=== PATIENT | male | born 1950 | race Caucasian/White ===

== ENCOUNTER 2019-08-01 08:08 | Outpatient (RCR) | payer MEDICARE, SELFPAY ==
[2019-05-22 09:22] LABS: INR 2.7; Prothrombin Time 28.3 Seconds (9.64-11.0)
[2019-06-27 08:06] LABS: INR 2.2; Prothrombin Time 23.4 Seconds (9.64-11.0)
[2019-08-01 08:25] LABS: INR 3.9; Prothrombin Time 40.6 Seconds (9.64-11.0)
== END 2019-08-20 23:59 | disposition home or self-care (01) ==
LOC: CHSLAB 08:08
PROVIDERS: PCP Internal Medicine; Visit Provider Internal Medicine
DX: Z79.01 Long term (current) use of anticoagulants (principal)
CPT/HCPCS: 36415; 85610

== ENCOUNTER 2019-09-10 07:21 | Outpatient (CLI) | payer MEDICARE, SELFPAY ==
[2019-09-10 07:40] LABS: Basophils Absolute Auto 0.05 K/mm3 (0.00-0.10); Basophils Percent Auto 0.7 % (0.0-1.0); Eosinophils Percent Auto 1.3 % (1.0-6.0); Hematocrit 43.6 % (37.0-46.0); Hemoglobin 14.9 g/dL (12.4-15.3); Immature Granulocyte Absolute 0.04 K/mm3 (0.00-0.00); Immature Granulocyte Percent A 0.5 % (0.0-0.0); Lymphocytes Absolute Auto 1.47 K/mm3 (1.10-4.50); Lymphocytes Percent Auto 19.6 % (18.0-42.0); Mean Corpuscular HGB Conc 34.2 g/dL (32.0-36.0); Mean Corpuscular Hemoglobin 29.6 pg (27.0-31.0); Mean Corpuscular Volume 86.7 fL (78.0-102.0); Mean Platelet Volume 9.2 fl (8.7-11.0); Monocytes Absolute Auto 0.69 K/mm3 (0.10-0.90); Monocytes Percent Auto 9.2 % (2.0-11.0); Neutrophils Absolute Auto 5.2 K/mm3 (1.7-7.2); Neutrophils Percent Auto 68.7 % (50.0-70.0); Platelet Count Result 207 K/mm3 (150-420); Red Blood Count 5.03 M/mm3 (4.70-6.10); Red Cell Distribution Width 13.2 % (11.6-14.4); White Blood Count 7.5 K/mm3 (4.8-10.8)
[2019-09-10 09:06] LABS: Alanine Aminotransferase 22 U/L (16-63); Albumin Level 4.2 g/dL (3.4-5.0); Alkaline Phosphatase 57 U/L (46-116); Anion Gap 15.3 mmol/L (7-16); Aspartate Amino Transferase 22 U/L (15-37); Bilirubin,Total 0.6 mg/dL (0.00-1.00); Blood Urea Nitrogen 18 mg/dL (7-18); Calcium 8.4 mg/dL (8.5-10.1); Carbon Dioxide 24 mmol/L (21-32); Chloride 106 mmol/L (98-108); Estimated Glomerular Filt Rate 59; Glucose 105 mg/dL (70-99); Osmolality Calculated 293 mOsm/kg (285-295); Potassium 4.3 mmol/L (3.5-5.1); Sodium 141 mmol/L (136-145); Total Protein 7.2 g/dL (6.4-8.2)
[2019-09-10 09:19] LABS: Thyroid Stimulating Hormone Reflex 0.22 u/IU/mL (0.36-3.74)
[2019-09-10 09:32] LABS: Free T4 Free Thyroxine Reflex 1.28 ng/dL (0.76-1.46)
[2019-09-12 19:50] LABS: T4 Thyroxine 10.8 mcg/dL (4.9-10.5)
== END 2019-09-10 07:22 | disposition home or self-care (01) ==
PROVIDERS: PCP Internal Medicine
DX: E03.9 Hypothyroidism, unspecified (principal); E78.00 Pure hypercholesterolemia, unspecified; I44.2 Atrioventricular block, complete; Z79.01 Long term (current) use of anticoagulants; Z95.0 Presence of cardiac pacemaker; Z95.2 Presence of prosthetic heart valve; Z95.828 Presence of other vascular implants and grafts
CPT/HCPCS: 36415; 80053; 84436; 84439; 84443; 85025

== ENCOUNTER 2019-11-20 07:00 | Outpatient (RCR) | payer MEDICARE, SELFPAY ==
[2019-09-04 07:52] LABS: Prothrombin Time 29.4 Seconds (9.64-11.0)
[2019-10-16 07:47] LABS: INR 3.4; Prothrombin Time 33.8 Seconds (9.64-11.0)
[2019-11-20 07:39] LABS: Prothrombin Time 30.1 Seconds (9.64-11.0)
== END 2019-12-03 23:59 | disposition home or self-care (01) ==
LOC: CHSLAB 07:00
PROVIDERS: PCP Internal Medicine; Visit Provider Internal Medicine
DX: Z79.01 Long term (current) use of anticoagulants (principal)
CPT/HCPCS: 36415; 85610

== ENCOUNTER 2020-01-02 10:13 | Outpatient (CLI) | payer MEDICARE, SELFPAY ==
--- NOTE | ~2020-01-02 | US_ITS ---
EXAMINATION: US retroperitoneal comp DATE: 01/02/2020 11:13 INDICATION: Hematuria. TECHNIQUE: Multiple ultrasound grayscale images of the kidneys were obtained. COMPARISON: Ultrasound 04/01/2014 FINDINGS: The right kidney measures 10.2 x 5.1 x 4.7 cm. The left kidney measures 11.4 x 5.6 x 5.3 cm. The kidn eys demonstrate normal parenchymal echogenicity. There is no hydronephrosis. The bladder is normal. T he prevoid volume is 646 mL. The postvoid volume is 35 mL. The prostate is mildly enlarged. There is a 3.9 cm heterogeneous mass in the liver. IMPRESSION: 1. Normal kidneys. No hydronephrosis. 2. 3.9 cm liver mass suspicious for malignancy. Abdomen MRI without and with contrast is recommended. Reviewed, dictated and finalized at location A. IMPRESSION: 1. Normal kidneys. No hydronephrosis. 2. 3.9 cm liver mass suspicious for malignancy. Abdomen MRI without and with co ntrast is recommended.
== END 2020-01-02 10:14 | disposition home or self-care (01) ==
LOC: CHSIMG 10:14
PROVIDERS: PCP Internal Medicine; Visit Provider Internal Medicine
DX: R31.9 Hematuria, unspecified (principal)
CPT/HCPCS: 76770

== ENCOUNTER 2020-01-13 06:59 | Outpatient (CLI) | payer MEDICARE, SELFPAY ==
--- NOTE | ~2020-01-13 | CT_ITS ---
EXAMINATION: CT abdomen wo/w con INDICATION: Liver mass TECHNIQUE: Computed tomographic images of the abdomen were obtained prior to then after the administr ation of 100 cc of Omnipaque 350 intravenous contrast in the arterial and portal venous phases. The d ose-length product (DLP) was 1010.26 mGy-cm. Automated exposure control and iterative reconstruction technique were employed. COMPARISON: Ultrasound dated 01/02/2020 and 04/01/2014 FINDINGS: There are multiple cysts of the liver which measure up to 4.9 cm in liver segment II. There is a 6.5 x 4.5 cm mass at the junction of liver segments VII and VIII which is nonenhancing. There i s a tiny peripheral calcification in the mass. On the 2013 comparison ultrasound, the mass measured 5 .9 cm but was cystic in appearance with thin septations. The portal and hepatic veins are patent. The gallbladder is surgically absent. The spleen and adrenal glands are normal. There are two cystic les ions in the body of the pancreas which measure 5 mm. There is no definite communication with the main pancreatic duct. Cysts of the kidneys measure up to 10 mm on the left. There are no pathologically e nlarged abdominal lymph nodes. No dilated loops of bowel are evident. There is moderate lumbar spondy losis. IMPRESSION: 1. Multiple liver cysts including one hyperdense but nonenhancing cyst. Finding could reflect old hem orrhage or proteinaceous material or possibly very slow filling hemangioma.. 2. Cystic pancreatic lesions measuring up to 5 mm without definite main pancreatic duct communication . The differential diagnosis includes pseudocyst, intraductal papillary mucinous neoplasm (IPMN), muc inous cystic neoplasm (MCN), and the less common serous cystadenoma and neuroendocrine tumor. Correla te for history of pancreatitis. Follow-up CT or MRI without and with contrast in two years is recommended. Reviewed, dictated and finalized at location A. IMPRESSION: 1. Multiple liver cysts including one hyperdense but nonenhancing cyst. Finding could reflect old hemorrhage or proteinaceous material or possibly very slow f illing hemangioma.. 2. Cystic pancreatic lesions measuring up to 5 mm without definite main pancrea tic duct communication. The differential diagnosis includes pseudocyst, intradu ctal papillary mucinous neoplasm (IPMN), mucinous cystic neoplasm (MCN), and th e less common serous cystadenoma and neuroendocrine tumor. Correlate for histor y of pancreatitis. Follow-up CT or MRI without and with contrast in two years is recommended.
[2020-01-13 07:22] LABS: Estimated Glomerular Filt Rate 58
== END 2020-01-13 07:00 | disposition home or self-care (01) ==
LOC: CHSIMG 07:01
PROVIDERS: PCP Internal Medicine; Visit Provider Internal Medicine
DX: R16.0 Hepatomegaly, not elsewhere classified (principal)
CPT/HCPCS: 74170; Q9965

== ENCOUNTER 2020-02-05 07:17 | Outpatient (CLI) | payer MEDICARE, SELFPAY ==
[2020-02-05 07:44] LABS: INR 3.6; Prothrombin Time 35.9 Seconds (9.64-11.0)
[2020-02-05 08:31] LABS: Free T4 Free Thyroxine 1.38 ng/dL (0.76-1.46); Thyroid Stimulating Hormone 0.16 uIU/mL (0.36-3.74)
[2020-02-13 03:41] LABS: Thyroglobulin <0.1 ng/mL (2.8-40.9); Thyroglobulin Antibodies <1 IU/mL (<=1)
== END 2020-02-05 07:18 | disposition home or self-care (01) ==
LOC: CHSLAB 07:22
PROVIDERS: PCP Internal Medicine
DX: Z79.01 Long term (current) use of anticoagulants (principal); C73 Malignant neoplasm of thyroid gland
CPT/HCPCS: 36415; 84432; 84439; 84443; 85610; 86800

== ENCOUNTER 2020-03-08 07:54 | Outpatient (RCR) | payer MEDICARE, SELFPAY ==
[2019-12-31 07:48] LABS: INR 3.9; Prothrombin Time 38.3 Seconds (9.64-11.0)
[2020-03-08 08:19] LABS: INR 2.9; Prothrombin Time 28.8 Seconds (9.64-11.0)
== END 2020-03-30 23:59 | disposition home or self-care (01) ==
LOC: CHSLAB 07:54
PROVIDERS: PCP Internal Medicine; Visit Provider Internal Medicine
DX: Z79.01 Long term (current) use of anticoagulants (principal)
CPT/HCPCS: 36415; 85610

== ENCOUNTER 2020-06-17 11:31 | Outpatient (RCR) | payer MEDICARE, SELFPAY ==
--- NOTE | 2020-06-17 12:54 | PTOPEVAL ---
Thank you for referring Yonny Lawler to [facility].? The patient is scheduled to be seen for therapy? ____x/week for ___ weeks. Please review, sign, date and return this plan of care DEL. I agree with and certify that the following plan of care is medically necessary. Referring Physician Date Admitting Provider: Attending Provider: Alex Gifford MD Referring Provider: *PT Outpatient Evaluation Start: 06/17/20 11:21 Freq: Status: Active Protocol: Document 06/17/20 11:20 [facility] (Rec: 06/17/20 11:49 [facility] [id number]) Therapy Assessment Status Assessment Status Assessment Status Evaluation Evaluation Information Problem Diagnosis BPPV Onset 06/17/20 Subjective Information patient reports he has been Query Text:As Reported By Patient/ having symptoms for about 3 Family months or so. he reports he will get dizzy when lying down in bed, or when laying down to the floor to work on projects/cars at home. he reports he does have a heart valve replacement (25 years ago). he reports he is on coumadin. he has a history of mild strokes several years ago . Prior Level of Function Comments Additional Prior Level of Function prior to 3 months ago, no Comments issues with dizzyness. patient reports no injury. he reports his brother had similar symptoms about 2-3 years ago. Pain Assessment Timing of Pain Assessment Timing of Pain Assessment Assessment Self Report Self Report Pain Level 0 Pain Score Pain Score 0: Self Report Cervical and Lumbar ROM Cervical ROM Cervical Flexion (0-60) 50 Query Text:Active in Degrees Cervical Extension (0-70) 30 Query Text:Active in Degrees Upper Extremity Range of Motion General Upper Extremity Range of Motion Reason Not Measured WFL/Left,WFL/Right Upper Extremity Muscle Strength Testing General Upper Extremity Strength Gross Upper Extremity Strength Comments bilateral shoulder flex = 5/5 bilateral shoulder abd = 5/5 bilateral elbow flex and ext = 5/5 Palpation Assessment Palpation Palpation BP sitting at rest = 130/75 -positive vertical nystagmus with suraj hallpike test to the R side. General Exercise General Exercises Exerc
== END 2020-06-28 14:08 | disposition home or self-care (01) ==
LOC: CHSPT 11:31
PROVIDERS: PCP Internal Medicine; Visit Provider Internal Medicine
DX: H81.10 Benign paroxysmal vertigo, unspecified ear (principal)
CPT/HCPCS: 97112; 97161; 97530

== ENCOUNTER 2020-07-07 10:07 | Outpatient (RCR) | payer MEDICARE, SELFPAY ==
[2020-04-22 08:50] LABS: Prothrombin Time 29.5 Seconds (9.64-11.0)
[2020-06-01 11:08] LABS: INR 2.2; Prothrombin Time 21.7 Seconds (9.64-11.0)
[2020-07-07 10:36] LABS: INR 3.1; Prothrombin Time 31.9 Seconds (9.50-12.10)
== END 2020-07-21 23:59 | disposition home or self-care (01) ==
LOC: CHSLAB 10:07
PROVIDERS: PCP Internal Medicine; Visit Provider Internal Medicine
DX: Z79.01 Long term (current) use of anticoagulants (principal)
CPT/HCPCS: 36415; 85610

== ENCOUNTER 2020-10-21 08:43 | Outpatient (RCR) | payer MEDICARE, SELFPAY ==
[2020-08-11 07:51] LABS: INR 3.5; Prothrombin Time 35.2 Seconds (9.50-12.10)
[2020-09-16 08:17] LABS: INR 2.3; Prothrombin Time 23.9 Seconds (9.50-12.10)
[2020-10-21 09:22] LABS: INR 3.7; Prothrombin Time 36.9 Seconds (9.50-12.10)
== END 2020-11-09 23:59 | disposition home or self-care (01) ==
LOC: CHSLAB 08:43
PROVIDERS: PCP Internal Medicine; Visit Provider Internal Medicine
DX: Z79.01 Long term (current) use of anticoagulants (principal)
CPT/HCPCS: 36415; 85610

== ENCOUNTER 2020-11-29 07:05 | Outpatient (RCR) | payer MEDICARE, SELFPAY ==
[2020-11-29 07:29] LABS: INR 2.2
== END 2021-02-27 23:59 | disposition home or self-care (01) ==
LOC: CHSLAB 07:05
PROVIDERS: PCP Internal Medicine; Visit Provider Internal Medicine
DX: Z79.01 Long term (current) use of anticoagulants (principal)
CPT/HCPCS: 36415; 85610

== ENCOUNTER 2021-01-13 07:26 | Outpatient (CLI) | payer MEDICARE, SELFPAY ==
[2021-01-13 07:47] LABS: Basophils Absolute Auto 0.04 K/mm3 (0.00-0.10); Basophils Percent Auto 0.5 % (0.0-1.0); Eosinophils Absolute Auto 0.14 K/mm3 (0.02-0.50); Eosinophils Percent Auto 1.7 % (1.0-6.0); Hematocrit 43.4 % (37.0-46.0); Immature Granulocyte Absolute 0.06 K/mm3 (0.00-0.00); Immature Granulocyte Percent A 0.7 % (0.0-0.0); Lymphocytes Absolute Auto 1.64 K/mm3 (1.10-4.50); Mean Corpuscular HGB Conc 34.6 g/dL (32.0-36.0); Mean Corpuscular Hemoglobin 29.5 pg (27.0-31.0); Mean Corpuscular Volume 85.4 fL (78.0-102.0); Monocytes Absolute Auto 0.77 K/mm3 (0.10-0.90); Monocytes Percent Auto 9.4 % (2.0-11.0); Neutrophils Absolute Auto 5.5 K/mm3 (1.7-7.2); Neutrophils Percent Auto 67.7 % (50.0-70.0); Platelet Count Result 194 K/mm3 (150-420); Red Blood Count 5.08 M/mm3 (4.70-6.10); White Blood Count 8.2 K/mm3 (4.8-10.8)
[2021-01-13 08:00] LABS: INR 3.9; Prothrombin Time 39.2 Seconds (9.50-12.10)
[2021-01-13 08:48] LABS: Alanine Aminotransferase 20 U/L (16-63); Alkaline Phosphatase 58 U/L (46-116); Anion Gap 10 mmol/L (8-16); Aspartate Amino Transferase 20 U/L (15-37); Bilirubin,Total 0.6 mg/dL (0.00-1.00); Blood Urea Nitrogen 15 mg/dL (7-18); Calcium 8.1 mg/dL (8.5-10.1); Carbon Dioxide 25 mmol/L (21-32); Chloride 107 mmol/L (98-108); Cholesterol 148 mg/dL (0-200); Estimated Glomerular Filt Rate > 60; Free T4 Free Thyroxine 1.44 ng/dL (0.76-1.46); Glucose 98 mg/dL (70-99); HDL Direct 35 mg/dL (40-60); Osmolality Calculated 294 mOsm/kg (285-295); Potassium 4.6 mmol/L (3.5-5.1); Sodium 142 mmol/L (136-145); Thyroid Stimulating Hormone 0.07 uIU/mL (0.36-3.74); Total Protein 6.8 g/dL (6.4-8.2)
[2021-01-13 10:29] LABS: LDL Cholesterol Calculated 95 mg/dL (<130); Triglycerides 89 mg/dL (0-150)
[2021-01-16 04:03] LABS: Thyroglobulin <0.1 ng/mL (2.8-40.9); Thyroglobulin Antibodies <1 IU/mL (<=1)
== END 2021-01-13 07:27 | disposition home or self-care (01) ==
PROVIDERS: PCP Internal Medicine
DX: Z79.01 Long term (current) use of anticoagulants (principal); E78.00 Pure hypercholesterolemia, unspecified; I44.2 Atrioventricular block, complete; Z95.0 Presence of cardiac pacemaker; Z95.2 Presence of prosthetic heart valve; Z95.828 Presence of other vascular implants and grafts
CPT/HCPCS: 36415; 80053; 80061; 84432; 84439; 84443; 85025; 85610; 86800

== ENCOUNTER 2021-02-16 10:13 | Outpatient (CLI) | payer MEDICARE, SELFPAY ==
--- NOTE | ~2021-02-16 | DEXA_ITS ---
Bone Density Report Name: Yonny Lawler Age: 70 Sex: Male Ethnicity: White Date of : 1950 Indication: screening for osteoporosis; Referring Provider: Alex Gifford Study: Bone densitometry was performed. Exam Date: February 16, 2021 Accession number: [id number] Bone Density: Region BMD T-score Z-score Classification AP Spine(L2, L3, L4) 1.111 0.0 0.9 Normal Femoral Neck (Left) 0.773 -1.2 0.0 Osteopenia Total Hip (Left) 0.937 -0.6 0.0 Normal Femoral Neck (Right) 0.852 -0.6 0.6 Normal Total Hip (Right) 0.967 -0.4 0.2 Normal Femoral Neck Mean 0.812 -0.9 0.3 Normal Total Hip Mean 0.952 -0.5 0.1 Normal World Health Organization criteria for BMD impression classify patients as: Normal (T-score at or above -1.0), Osteopenia (T-score between -1.0 and -2.5), or Osteoporosis (T-score at or below -2.5). 10-year Fracture Risk: FRAX not reported because: Treated for osteoporosis Clinical Information Provided by Patient: Is being treated for osteoporosis Has used the following medications: Vitamin D, Calcium Patient maximum height was 69 Drinks caffeinated beverages Impression: The patient has low bone mass, based on the Left Femoral Neck T-score. Discussion: It is important to ask patients whether they are taking their medications and to encourage continued and appropriate compliance with their osteoporosis therapies to reduce fracture risk. It is also important to review their risk factors and encourage appropriate calcium and vitamin D intakes, exercise, fall prevention and other lifestyle measures. Follow-Up: Consider repeating this study in 2 years to reassess this patient's status, or sooner if there is some new clinical indication. Reported by: Dr. Néstor Hunter on 02/16/2021 10:39:00 AM. Reviewed, dictated and finalized at location A. [facility]
[2021-02-16 10:39] LABS: INR 3.7; Prothrombin Time 36.8 Seconds (9.50-12.10)
== END 2021-02-16 10:14 | disposition home or self-care (01) ==
PROVIDERS: PCP Internal Medicine; Visit Provider Internal Medicine
DX: Z12.5 Encounter for screening for malignant neoplasm of prostate (principal); M81.0 Age-related osteoporosis without current pathological fracture; Z79.01 Long term (current) use of anticoagulants
CPT/HCPCS: 36415; 77080; 84153; 85610; G0103

== ENCOUNTER 2021-05-21 12:36 | Outpatient (RCR) | payer MEDICARE, SELFPAY ==
[2021-03-24 09:16] LABS: INR 4.1
[2021-04-22 08:34] LABS: INR 2.4; Prothrombin Time 24.4 Seconds (9.50-12.10)
[2021-05-21 12:57] LABS: INR 3.8; Prothrombin Time 38.4 Seconds (9.50-12.10)
== END 2021-06-22 23:59 | disposition home or self-care (01) ==
LOC: CHSLAB 12:36
PROVIDERS: PCP Internal Medicine; Visit Provider Internal Medicine
DX: Z79.01 Long term (current) use of anticoagulants (principal)
CPT/HCPCS: 36415; 85610

== ENCOUNTER 2021-08-29 08:46 | Outpatient (RCR) | payer MEDICARE, SELFPAY ==
[2021-06-24 10:33] LABS: INR 3.7; Prothrombin Time 36.7 Seconds (9.50-12.10)
[2021-07-29 08:39] LABS: INR 3.1; Prothrombin Time 31.4 Seconds (9.50-12.10)
[2021-08-29 09:31] LABS: INR 2.8; Prothrombin Time 28.2 Seconds (9.50-12.10)
== END 2021-09-22 23:59 | disposition home or self-care (01) ==
LOC: CHSLAB 08:46
PROVIDERS: PCP Internal Medicine; Visit Provider Internal Medicine
DX: Z79.01 Long term (current) use of anticoagulants (principal)
CPT/HCPCS: 36415; 85610

== ENCOUNTER 2021-10-10 07:53 | Outpatient (RCR) | payer MEDICARE, SELFPAY ==
--- NOTE | 2021-10-10 09:06 | PTOPEVAL ---
Thank you for referring Yonny Lawler to [facility] [place] 2[facility]? The patient is scheduled to be seen for therapy? ____x/week for ___ weeks. Please review, sign, date and return this plan of care DEL. I agree with and certify that the following plan of care is medically necessary. Referring Physician Date Admitting Provider: Attending Provider: Alex Gifford MD Referring Provider: *PT Outpatient Evaluation Start: 10/10/21 08:10 Freq: Status: Active Protocol: Document 10/10/21 08:10 [facility] (Rec: 10/10/21 09:05 [facility] [id number]) Therapy Assessment Status Assessment Status Assessment Status Evaluation Evaluation Information Problem Diagnosis L shoulder pain Onset 10/04/21 Additional Evaluation Detail quick dash = 34% functionally declined Subjective Information patient reports he is unsure Query Text:As Reported By Patient/ of any injury to the L Family shoulder. however, about 3-4 weeks ago he began having pain in the L shoulder at rest and with lifting his shoulder up to his side. he reports no imaging as of this date. he reports at times his pain will radiate from the shoulder to the forearm. he reports increased pain/symptoms with use. he reports he has been using heat and ice at home. he reports he has not taken any OTC meds for pain. he reports he has increased pain with rainsing his L shoulder up to his side and behind him. he reports no NTB. Prior Level of Function Comments Additional Prior Level of Function prior to a month or so ago, no Comments issues with the L shoulder. he reports he was working out at [employer] and lifting weights . he reports he has not been in about 2 months. Pain Assessment Timing of Pain Assessment Timing of Pain Assessment Assessment Pain Scale Pain Scale Used Numeric (1 - 10) Self Report Pain Assessment Left Shoulder(s) Reported Pain Level 0 Greatest Pain Intensity 7 Pain Score Pain Score 0: Self Report Interventions Used Interventions Used By Clinicians Education,Heat,Ice,Rest Pain Relief Interventions Used By Heat,Ice Patient
== END 2021-10-21 09:26 | disposition home or self-care (01) ==
LOC: CHSPT 07:53
PROVIDERS: PCP Internal Medicine; Visit Provider Internal Medicine
DX: M25.512 Pain in left shoulder (principal)
CPT/HCPCS: 97110; 97140; 97161

== ENCOUNTER 2021-12-05 10:40 | Outpatient (CLI) | payer MEDICARE, SELFPAY ==
--- NOTE | ~2021-12-05 | XR_ITS ---
EXAMINATION: XR shoulder LT min 2V DATE: 12/05/2021 11:02 INDICATION: Lateral left shoulder pain. TECHNIQUE: 4 views of left shoulder were obtained. COMPARISON: None. FINDINGS: Bone alignment is normal. No acute fracture. There are old healed left rib fractures. There is mild osteoarthritis of glenohumeral joint and acromioclavicular joint. There are loose bodies in glenohumeral joint. There are changes of heart valve replacement. A left chest pacer is noted. IMPRESSION: 1. Polyarticular osteoarthritis. 2. Loose bodies in left glenohumeral joint. Reviewed, dictated and finalized at location A.
== END 2021-12-05 10:41 | disposition home or self-care (01) ==
LOC: CHSIMG 10:41
PROVIDERS: PCP Internal Medicine; Visit Provider Internal Medicine
DX: M25.512 Pain in left shoulder (principal); M15.9 Polyosteoarthritis, unspecified
CPT/HCPCS: 73030

== ENCOUNTER 2021-12-06 12:54 | Outpatient (RCR) | payer MEDICARE, SELFPAY ==
[2021-10-03 08:48] LABS: INR 4.9; Prothrombin Time 48.7 Seconds (9.50-12.10)
[2021-11-01 10:49] LABS: INR 3.4; Prothrombin Time 34.6 Seconds (9.50-12.10)
[2021-12-06 13:20] LABS: INR 2.9; Prothrombin Time 29.4 Seconds (9.50-12.10)
== END 2022-01-01 23:59 | disposition home or self-care (01) ==
LOC: CHSLAB 12:54
PROVIDERS: PCP Internal Medicine; Visit Provider Internal Medicine
DX: Z79.01 Long term (current) use of anticoagulants (principal)
CPT/HCPCS: 36415; 85610

== ENCOUNTER 2021-12-07 10:17 | Outpatient (CLI) | payer MEDICARE, SELFPAY ==
--- NOTE | ~2021-12-07 | CT_ITS ---
EXAMINATION: CT shoulder LT wo con DATE: 12/07/2021 10:50 INDICATION: 6 weeks of left shoulder pain TECHNIQUE: High resolution computed tomography (CT) of the left was performed without intravenous con trast. Additional sagittal and coronal reconstructions were performed. Automated exposure control and iterative reconstruction technique were employed. The dose-length product was 465.12 mGy-cm. COMPARISON: Left shoulder radiographs dated 12/05/2021 FINDINGS: Bone alignment is normal. Normal variant the unfused meso acromial os acromiale. Suggestion of a cane piler barry no sac fracture trough at the posterolateral aspect of the humeral head. Correlate clinically for a prior anterior glenohumeral dislocation. No acute fracture. Mild left glenohumeral osteoarthritis with mild nonuniform joint space narrowing and small marginal osteophytes along the anteroinferior gl enoid. No glenohumeral joint effusion. A couple small globular calcifications measuring up to 5 mm ma ximal diameter along the posterior inferior rim of the glenoid which could represent either degenerat trip loose osteochondral bodies or heterotopic ossification related to chronic soft tissue injury. Mil d acromioclavicular osteoarthritis. Small sclerotic bone island was deflated margins at the humeral h ead and neck the glenoid. Cystic change along the superior facet of the greater tuberosity which can be seen with chronic rotator cuff disease. 3.5 x 1.0 x 0.7 cm lenticular intramuscular lipoma along t he anterior head of the deltoid. Dual-lead left pectoral cardiac pacemaker. Aortic valve repair. No p athologically enlarged lymphadenopathy at the left axilla, left hilum or visualized mediastinum. Visu alized portion of the left lung are clear. IMPRESSION: 1. Mild left glenohumeral and acromioclavicular osteoarthritis. 2. Suggestion of an old Hill-Sachs fracture trough at the posterior superior left humeral head. Corre late clinically for prior left glenohumeral dislocation. 3. Prominent cystic change along the superior facet of the greater tuberosity which can be seen with rotator cuff disease. Reviewed, dictated and finalized at location B. IMPRESSION: 1. Mild left glenohumeral and acromioclavicular osteoarthritis. 2. Suggestion of an old Hill-Sachs fracture trough at the posterior superior le ft humeral head. Correlate clinically for prior left glenohumeral dislocation. 3. Prominent cystic change along the superior facet of the greater tuberosity w hich can be seen with rotator cuff disease.
== END 2021-12-07 10:18 | disposition home or self-care (01) ==
LOC: CHSIMG 10:18
PROVIDERS: PCP Internal Medicine; Visit Provider Internal Medicine
DX: M25.512 Pain in left shoulder (principal)
CPT/HCPCS: 73200

== ENCOUNTER 2022-02-27 07:24 | Outpatient (CLI) | payer MEDICARE, SELFPAY ==
--- NOTE | ~2022-02-27 | CT_ITS ---
EXAMINATION: CT abdomen pelvis wo/w con DATE: 02/27/2022 08:52 INDICATION: Liver mass TECHNIQUE: Computed tomography (CT) of the abdomen was performed without intravenous contrast. CT of the abdomen was then performed in the arterial phase with a total of 100 mL Omnipaque 350 intravenous contrast. Postcontrast images of the abdomen and pelvis were obtained in the portal venous phase. Th e dose-length product (DLP) was 1295.09 mGy-cm. Automated exposure control and iterative reconstructi on technique were employed. COMPARISON: 01/13/2020 FINDINGS: The lung bases are clear. The heart size is normal. Changes of aortic valve replacement are noted. Multiple simple cysts of the liver are again noted. There is a stable 6.5 x 4.5 cm mass at th e junction of liver segments VII and VIII. No enhancement is identified. The gallbladder is surgicall y absent. There is mild enlargement of the common bile duct and central intrahepatic ducts which is l ikely due to post cholecystectomy state. The spleen and adrenal glands are normal. There two stable c ystic lesions in the body of the pancreas. No definite communication with the main pancreatic duct is seen. . Cysts of the kidneys measure up to 10 mm on the left. No pathologically enlarged abdominal o r pelvic lymph nodes are identified. There is no free intraperitoneal gas or evidence of bowel obstru ction. The appendix is normal. There is moderate lumbar spondylosis. IMPRESSION: 1. Multiple stable liver cysts including a hyperdense, nonenhancing cyst. No suspicious interval rivas ge. 2. Stable cystic lesions of the pancreas with differential as previously described. Follow-up CT or M RI without and with contrast in two years is recommended. Reviewed, dictated and finalized at location A. IMPRESSION: 1. Multiple stable liver cysts including a hyperdense, nonenhancing cyst. No saldivar spicious interval change. 2. Stable cystic lesions of the pancreas with differential as previously descri bed. Follow-up CT or MRI without and with contrast in two years is recommended.
[2022-02-27 07:51] LABS: INR 3.9; Prothrombin Time 38.7 Seconds (9.50-12.10)
[2022-02-27 08:00] LABS: Estimated Glomerular Filt Rate 59
== END 2022-02-27 07:25 | disposition home or self-care (01) ==
PROVIDERS: PCP Internal Medicine; Visit Provider Internal Medicine
DX: Z79.01 Long term (current) use of anticoagulants (principal); R16.0 Hepatomegaly, not elsewhere classified
CPT/HCPCS: 74178; 85610; Q9967

== ENCOUNTER 2022-04-03 08:11 | Outpatient (RCR) | payer MEDICARE, SELFPAY ==
[2022-01-10 09:26] LABS: Prothrombin Time 51.3 Seconds (9.50-12.10)
[2022-01-10 09:29] LABS: INR 5.4
[2022-01-24 09:01] LABS: INR 2.7; Prothrombin Time 26.9 Seconds (9.50-12.10)
[2022-04-03 08:36] LABS: INR 3.8; Prothrombin Time 37.5 Seconds (9.50-12.10)
== END 2022-04-10 23:59 | disposition home or self-care (01) ==
LOC: CHSLAB 08:11
PROVIDERS: PCP Internal Medicine; Visit Provider Internal Medicine
DX: Z79.01 Long term (current) use of anticoagulants (principal)
CPT/HCPCS: 36415; 85610

== ENCOUNTER 2022-07-14 07:45 | Outpatient (RCR) | payer MEDICARE, SELFPAY ==
[2022-05-08 09:41] LABS: Prothrombin Time 30.5 Seconds (9.50-12.10)
[2022-06-12 09:00] LABS: INR 4.4; Prothrombin Time 42.4 Seconds (9.50-12.10)
[2022-07-14 08:06] LABS: INR 2.5; Prothrombin Time 25.9 Seconds (9.50-12.10)
== END 2022-08-06 23:59 | disposition home or self-care (01) ==
LOC: CHSLAB 07:45
PROVIDERS: PCP Internal Medicine; Visit Provider Internal Medicine
DX: Z51.81 Encounter for therapeutic drug level monitoring (principal); Z79.01 Long term (current) use of anticoagulants
CPT/HCPCS: 36415; 85610

== ENCOUNTER 2022-10-03 10:30 | Outpatient (CLI) | payer MEDICARE, SELFPAY ==
[2022-10-03 11:01] LABS: INR 3.3
[2022-10-03 11:11] LABS: Anion Gap 7 mmol/L (8-16); Blood Urea Nitrogen 20 mg/dL (7-18); Carbon Dioxide 31 mmol/L (21-32); Chloride 105 mmol/L (98-108); Estimated Glomerular Filt Rate 57; Glucose 105 mg/dL (70-99); Osmolality Calculated 298 mOsm/kg (285-295); Potassium 4.6 mmol/L (3.5-5.1); Sodium 143 mmol/L (136-145)
== END 2022-10-03 10:31 | disposition home or self-care (01) ==
LOC: CHSLAB 10:36
PROVIDERS: PCP Internal Medicine
DX: E78.00 Pure hypercholesterolemia, unspecified (principal); I10 Essential (primary) hypertension; I44.2 Atrioventricular block, complete; Z79.01 Long term (current) use of anticoagulants; Z95.0 Presence of cardiac pacemaker; Z95.2 Presence of prosthetic heart valve; Z95.828 Presence of other vascular implants and grafts
CPT/HCPCS: 36415; 80048; 85610

== ENCOUNTER 2022-11-06 10:00 | Outpatient (RCR) | payer MEDICARE, SELFPAY ==
[2022-08-18 09:26] LABS: INR 2.8; Prothrombin Time 28.2 Seconds (9.50-12.10)
[2022-11-06 10:27] LABS: INR 3.7; Prothrombin Time 36.6 Seconds (9.50-12.10)
== END 2022-11-16 23:59 | disposition home or self-care (01) ==
LOC: CHSLAB 10:00
PROVIDERS: PCP Internal Medicine; Visit Provider Internal Medicine
DX: Z51.81 Encounter for therapeutic drug level monitoring (principal); Z79.01 Long term (current) use of anticoagulants
CPT/HCPCS: 36415; 85610

== ENCOUNTER 2023-01-03 13:47 | Outpatient (CLI) | payer MEDICARE, SELFPAY ==
--- NOTE | ~2023-01-03 | CT_ITS ---
EXAMINATION: CT abdomen pelvis w con DATE: 01/03/2023 14:45 INDICATION: Acute onset right lower quadrant abdominal pain. TECHNIQUE: Computed tomography (CT) of the abdomen and pelvis was performed with 100 mL Omnipaque-350 intravenous contrast. Automated exposure control and iterative reconstruction technique were employe d. The dose-length product was 519.92 mGy-cm. COMPARISON: 02/27/2022 and 01/13/2020 FINDINGS: Calcified left lower lobe nodule consistent with old granulomatous disease. Heart size is normal. Car diac pacemaker leads, 2 terminating in the right ventricle and one at the right atrial appendage. No pericardial or pleural effusion. Aortic valve replacement noted on the um specialist topogram. Again seen are multiple fluid attenuation hepatic cysts, the largest in the left hepatic lobe with suggestion of th in nearly maximal internal septations measuring 6.5 cm . No significant interval change in the more c omplex. 6.2 x 4.4 cm lesion with heterogeneous slightly higher attenuation located at the posterior d ome of the liver in segment 8. Cholecystectomy clips the gallbladder fossa. Calcified splenic nodule consistent with old granulomatous disease. No interval change in a couple hypodense lesion in the bod y the pancreas. Larger measuring 8 mm with macroscopic fat attenuation the second smaller 5 mm lesion with fluid attenuation. Bilateral adrenal glands are normal. There are small bilateral low-attenuati on renal cysts, the largest on the left measuring 9 mm . Mild colonic diverticulosis without adjacent comparison to suggest diverticulitis. Small bowel and appendix are normal. Partially decompressed bl adder is normal. Prostatomegaly. Small fat-containing right inguinal hernia. No free intraperitoneal gas or fluid. No pathologically enlarged abdominal or pelvic lymphadenopathy. Moderate lumbar and low er thoracic spondylosis. IMPRESSION: 1. No acute intra-abdominal/pelvic process. Specifically the appendix is normal. 2. Stable appearance of a complex 6.2 x 4.4 cm hepatic lesion which given the lack of significant int erval change since 01/13/1920 most likely benign, potentially a very slowly filling cavernous hemangio ma or complex cyst. 3. No significant interval change in a couple likely benign small pancreatic lesions, one measuring 5 mm, potentially cystic and the second macroscopic fat attenuation potentially focal fatty atrophy or lipoma. 3. Prostatomegaly. 4. Small fat-containing right inguinal hernia. Reviewed, dictated and finalized at location A. IMPRESSION: 1. No acute intra-abdominal/pelvic process. Specifically the appendix is normal . 2. Stable appearance of a complex 6.2 x 4.4 cm hepatic lesion which given the l ack of significant interval change since 01/13/1920 most likely benign, potentia lly a very slowly filling cavernous hemangioma or complex cyst. 3. No significant interval change in a couple likely benign small pancreatic le sions, one measuring 5 mm, potentially cystic and the second macroscopic fat at tenuation potentially focal fatty atrophy or lipoma. 3. Prostatomegaly. 4. Small fat-containing right inguinal hernia.
[2023-01-03 14:06] LABS: Basophils Absolute Auto 0.07 K/mm3 (0.00-0.10); Basophils Percent Auto 0.9 % (0.0-1.0); Eosinophils Percent Auto 1.2 % (1.0-6.0); Hematocrit 43.5 % (37.0-46.0); Hemoglobin 14.7 g/dL (12.4-15.3); Immature Granulocyte Absolute 0.04 K/mm3 (0.00-0.00); Immature Granulocyte Percent A 0.5 % (0.0-0.0); Lymphocytes Absolute Auto 1.67 K/mm3 (1.10-4.50); Lymphocytes Percent Auto 20.6 % (18.0-42.0); Mean Corpuscular HGB Conc 33.8 g/dL (32.0-36.0); Mean Corpuscular Hemoglobin 29.6 pg (27.0-31.0); Mean Corpuscular Volume 87.7 fL (78.0-102.0); Monocytes Absolute Auto 0.84 K/mm3 (0.10-0.90); Monocytes Percent Auto 10.3 % (2.0-11.0); Neutrophils Absolute Auto 5.4 K/mm3 (1.7-7.2); Neutrophils Percent Auto 66.5 % (50.0-70.0); Platelet Count Result 202 K/mm3 (150-420); Red Blood Count 4.96 M/mm3 (4.70-6.10); Red Cell Distribution Width 12.5 % (11.6-14.4); White Blood Count 8.1 K/mm3 (4.8-10.8)
[2023-01-03 14:07] LABS: Appearance Urine Clear (Clear); Bilirubin Urine Negative (Negative); Blood Urine 2+ (Negative); Color Urine Yellow (Yellow); Glucose Urine UA Negative (Negative); Ketones Urine Negative (Negative); Leukocyte Esterase Ur Negative LEU/UL (Negative); Nitrate Urine Negative (Negative); Protein Urine Negative (Negative); Specific Grav Ur >= 1.030 (1.010-1.020); pH Urine 5.5 (5.0-8.0)
[2023-01-03 14:14] LABS: Add Urine Microscopic? YES
[2023-01-03 14:17] LABS: Bacteria Urine Trace /hpf; Squamous Epithelial Cell Urine Rare /hpf (Few); WBC Urine None seen /hpf (0-3)
[2023-01-03 14:18] LABS: Estimated Glomerular Filt Rate > 60
[2023-01-03 14:22] LABS: Alanine Aminotransferase 19 U/L (16-63); Alkaline Phosphatase 54 U/L (46-116); Anion Gap 6 mmol/L (8-16); Aspartate Amino Transferase 21 U/L (15-37); Bilirubin,Total 0.6 mg/dL (0.00-1.00); Blood Urea Nitrogen 19 mg/dL (7-18); Calcium 8.5 mg/dL (8.5-10.1); Carbon Dioxide 29 mmol/L (21-32); Chloride 105 mmol/L (98-108); Glucose 104 mg/dL (70-99); Osmolality Calculated 292 mOsm/kg (285-295); Potassium 4.3 mmol/L (3.5-5.1); Sodium 140 mmol/L (136-145); Total Protein 7.1 g/dL (6.4-8.2)
== END 2023-01-03 13:48 | disposition home or self-care (01) ==
LOC: CHSLAB 13:49
PROVIDERS: PCP Internal Medicine; Visit Provider Internal Medicine
DX: R10.31 Right lower quadrant pain (principal); K76.9 Liver disease, unspecified; K86.9 Disease of pancreas, unspecified; N40.0 Benign prostatic hyperplasia without lower urinary tract symptoms; K40.90 Unilateral inguinal hernia, without obstruction or gangrene, not specified as recurrent
CPT/HCPCS: 36415; 74177; 80053; 81001; 85025; Q9967

== ENCOUNTER 2023-01-11 10:04 | Outpatient (CLI) | payer MEDICARE, SELFPAY ==
[2023-01-11 10:34] LABS: INR 2.9; Prothrombin Time 29.8 Seconds (9.50-12.10)
[2023-01-11 10:59] LABS: Free T4 Free Thyroxine 1.58 ng/dL (0.76-1.46); Thyroid Stimulating Hormone 0.03 uIU/mL (0.36-3.74)
[2023-01-15 03:55] LABS: Thyroglobulin <0.1 ng/mL (2.8-40.9); Thyroglobulin Antibodies <1 IU/mL (<=1)
== END 2023-01-11 10:05 | disposition home or self-care (01) ==
LOC: CHSLAB 10:07
PROVIDERS: PCP Internal Medicine
DX: C73 Malignant neoplasm of thyroid gland (principal); Z79.01 Long term (current) use of anticoagulants
CPT/HCPCS: 36415; 84432; 84439; 84443; 85610; 86800

== ENCOUNTER 2023-02-01 09:22 | Outpatient (CLI) | payer MEDICARE, SELFPAY ==
--- NOTE | 2023-02-01 09:30 | ECG_ITS ---
Measurements Intervals [place] Rate: 60 P: -76 NE: 192 QRS: -79 QRSD: 185 T: 105 QT: 440 QTc: 440 Interpretive Statements ELECTRONIC ATRIAL PACEMAKER ELECTRONIC VENTRICULAR PACEMAKER BASELINE ARTIFACT- I, III, AVR, AVL, AVF NO FURTHER INTERPRETATION IS POSSIBLE ATYPICAL ECG NO PREVIOUS ECG AVAILABLE FOR COMPARISON Electronically Signed On 02-01-2023 10:54:03 CDT by Issa Ovalles D.O.
[2023-02-01 10:21] LABS: Partial Thromboplastin Time 45.4 SECONDS (22.3-36.8)
== END 2023-02-01 09:23 | disposition home or self-care (01) ==
LOC: ANHSURGERY 09:26
PROVIDERS: Anesthesiology; PCP Internal Medicine; Visit Provider Surgery
DX: Z01.812 Encounter for preprocedural laboratory examination (principal); Z01.810 Encounter for preprocedural cardiovascular examination; K40.90 Unilateral inguinal hernia, without obstruction or gangrene, not specified as recurrent; Z95.0 Presence of cardiac pacemaker; R94.31 Abnormal electrocardiogram [ECG] [EKG]
CPT/HCPCS: 36415; 85730; 86850; 86900; 86901; 93005

== ENCOUNTER 2023-02-07 04:22 | Day surgery (SDC) | payer MEDICARE, SELFPAY ==
[2023-01-31 09:24] VITALS: BMI 27.3
--- NOTE | 2023-01-31 09:51 | PC.NURSE ---
Report to the Outpatient Waiting Room, entrance under the green pavilion located off [facility], at time _7:00AM on date __02/07/23 . Planned Procedure Time: __9:00AM . Time changes happen often and if your time is changed the preop area will call you the afternoon before. - You and your visitor will be asked to self-screen and do not enter if you have any COVID symptoms. - A mask is optional within the hospital at this time. Patients may have clear liquids (water, carbonated beverages, clear teas, apple juice) until 3 hours prior to surgery with a maximum of 20 ounces. - No food from midnight until time of surgery Take the following medications with a SIP of water the morning of surgery: ___LEVOTHYROXINE, TRAMADOL NEEDED DO NOT STOP ANY OF YOUR OTHER PRESCRIPTION MEDICATIONS PRIOR TO SURGERY ?EXCEPT THE FOLLOWING Medications to discontinue per physician __HOLD COUMADIN 5 DAYS PRE-OP-LAST DOSE 02/01/23, HOLD ALL VITAMINS/SUPPLEMENTS 3 DAYS PRE-OP PER ANESTHESIA- LAST DOSE 02/03/23 Please no make-up, nail kinyarwanda, hairspray, perfume, deodorant, or body powder the day of surgery. No jewelry (including any body piercings) or valuables the day of surgery, leave them at home. Please take a shower or bath the night before, or the morning of, surgery with an antibacterial soap. Wear comfortable, loose fitting clothing. Children are encouraged to wear pajamas. - Jewelry must be removed prior to entering the operating room. Rings and piercings that are not removed may be cut off. - The hospital will not accept responsibility for valuables. - Please leave all valuables, including medications, at home the day of surgery. If you are going home after surgery, a licensed airport shuttle driver must drive you home. - NO public transportation without another adult if you receive anesthesia. - We recommend that an adult stay with you for 24 hours following discharge. - We also recommend that you do not drive, make important decision, drink alcoholic beverages, or take any drugs that were not prescribed by your health care provider for at least 24 hours after your discharge time. Follow any additional instructions given to you from your surgeon. HIBICLENS SHOWER MORNING OF SURGERY If you or anyone in your household have experienced Covid symptoms in the past week, please notify your surgeon or the nurse liaison at the phone number below for possible testing. Telephone instructions given to ___PATIENT and asked if any additional questions and then verbalized understanding. Patient advised to call surgeon office or pre surgery nurse liaison [phone] if any additional questions.
--- NOTE | 2023-02-06 10:31 | WPDANESEPPF ---
Anes - Initial Pre Proc Eval Procedure: Operation Date: 02/07/23 09:00 Proposed Procedures p Laparoscopic Right Inguinal Hernia Repair with Mesh, Davinci Assisted - Sathya Nuñez DO Date/Time: 02/06/23 10:31 Surgeon: Sathya Nuñez DO Pre Op Diagnosis: Right Ing Hernia Patient Data Age: 72 Gender: M Height: 1.75 m Weight: 84 kg Allergies Allergy/AdvReac Type Severity Reaction Status Date / Time No Known Allergies Allergy Verified 02/07/23 06:58 Home Medications Medication Instructions Recorded Confirmed Type aspirin 81 mg tablet,delayed 81 mg PO DAILY 01/10/23 02/07/23 History release cholecalciferol (vitamin D3) 25 25 mcg PO DAILY 01/10/23 02/07/23 History mcg (1,000 unit) capsule coenzyme Q10 10 mg capsule (Co 10 mg PO ONCE 01/10/23 02/07/23 History Q-10) levothyroxine 137 mcg tablet 137 mcg PO QAM 01/10/23 02/07/23 History (Synthroid) pravastatin 40 mg tablet 40 mg PO DAILY 01/10/23 02/07/23 History valsartan 80 mg tablet 80 mg PO HS 01/10/23 02/07/23 History warfarin 5 mg tablet 5 mg PO QMWF 01/10/23 02/07/23 History tramadol 50 mg tablet 50 mg PO Q6-8H PRN Pain 01/31/23 02/07/23 History warfarin 5 mg tablet 2.5 mg PO [id number] 01/31/23 02/07/23 History Patient hx anesthesia problems: none Family hx anesthesia problems: none Results Review: All pre-operative results and documents have been reviewed as part of the pre-operative evaluation. [facility] Past Medical History Medical History (Updated 02/06/23 @ 10:31 by Christopher Infante DO) Aortic stenosis DVT (deep venous thrombosis) 2014 High cholesterol HTN (hypertension) Kidney stones Thyroid cancer Surgical History Surgical History (Updated 02/06/23 @ 10:31 by Christopher Infante DO) H/O partial thyroidectomy 2010 History of aortic aneurysm repair Hx laparoscopic cholecystectomy 2005 Hx of aortic valve replacement 1993, 2009 Hx of cardiac pacemaker Family History Family History Father Alzheimer disease Multiple myeloma Social History Social History Smoking packs per day: 1 Smoking cigarettes per day: 20.0 Years smoked: 8 Smoking pack-years: 8.00 Smoking status: Former smoker Tobacco type: cigarettes Smoking end date: 01/13/73 Alcohol intake: current Alcohol use details: Socially Substance use: never Living arrangements: with family Additional living arrangements comments: Spiritual care concerns: No Anes - Eval Final PreProcedure Day of Procedure 02/06/23 10:31 Patient weight: overweight Heart: regular rate and rhythm Lungs: clear to auscultation Airway: Mallampati scale class II Neurological: alert and oriented Last oral intake: >/= 8 hours ASA classification: III Emergent: no Anesthetic plan: proceed Anesthesia type and monitoring: general ETT and standard monitoring Results Review: All pre-operative results and documents have been reviewed as part of the pre-operative evaluation. Informed Consent: The patient's anesthetic plan and its attendant risks and benefits were discussed with the patient/family/POA. Questions were solicited and answers provided to the satisfaction of the patient/family/POA.
[2023-02-07] VITALS (9 sets, daily range): BP systolic 115–156; BP diastolic 51–94; PULSE 60–68; RESP 16–20; TEMP 36.6–36.7; O2SAT 98–100
[2023-02-07] MEDS: ACETAMINOPHEN 500 MG TABLET 1000 MG PO (07:30)
[2023-02-07] MEDS: LACTATED RINGERS 1,000 ML 30 ML IV CONT ×3 (07:45→12:11)
[2023-02-07 08:05] LABS: INR 1.1; Prothrombin Time 15.2 Seconds (11.1-14.7)
--- NOTE | 2023-02-07 08:53 | WPDHPUPDATE1 ---
History and Physical Update Update Date/Time: 02/07/23 08:53 History and Physical has been reviewed, including an updated exam of the patient. There are NO changes in the patient's condition. Risks, benefits, and alternatives have been discussed and questions answered. Patient agrees to proceed with procedure.
[2023-02-07] MEDS: KETOROLAC 15 MG/ML VIAL (*BKC) IV PUSH (09:06)
[2023-02-07] MEDS: ceFAZolin 2 GM/D5W 50 ML 2 GM/50 ML BAG IVPB (09:14)
[2023-02-07] MEDS: BUPIVACAINE/EPINEPHRINE 0.5% 10 ML VIAL 30 ML INFILTRATE (09:42)
--- NOTE | 2023-02-07 10:21 | W.PM.PROC2 ---
Procedure Note - Detailed Date of Procedure 02/07/23 Pre-op Diagnosis Right Ing Hernia Post-op Diagnosis Same (Indirect RIH) Procedure Performed Laparoscopic right inguinal hernia repair with mesh, da Cristhian assisted Surgeon Sathya Nuñez, Anesthesia General and Local (0.5% bupivacaine with epinephrine) Indications This is a 72-year-old man who presented with right groin pain and a bulge that started about 2 months ago. He does not recall any particular thing he did that cause the pain. A CT was obtained which showed evidence of a fat containing right inguinal hernia. He was found to have a reducible right inguinal hernia on exam. Discussions were made with the patient about treatment options and decision was made to proceed with robotic assisted laparoscopic right inguinal hernia repair with mesh. Findings Laparoscopic right inguinal hernia repair was performed. The patient was found to have an indirect right inguinal hernia. A robotic transabdominal preperitoneal approach was utilized for repair. Once a wide enough preperitoneal pocket was created and the hernia sac was reduced, I then placed a large right Bard 3DMax mid mesh overlying the entire right myopectineal orifice. Description of Procedure Procedure as well as risks, benefits, and alternatives were discussed with the patient. Written consent was obtained and placed in chart prior to procedure. Patient was brought back to surgical suite. He was placed supine on operating table. Time-out was done to confirm patient and procedure. He was then intubated by Anesthesia Department. His abdomen was prepped and draped in sterile fashion using chlorhexidine prep. 0.5% bupivacaine with epinephrine was infiltrated at each location for incision. An 8 mm incision was made in the left lateral abdomen, and a 5 mm Optiview trocar was advanced through the abdominal layers under direct visualization. Once inside the abdominal cavity, carbon dioxide insufflation was used to create a pneumoperitoneum. A camera was inserted and the abdominal cavity was inspected. The patient was placed in slight Trendelenburg position. An 8 millimeter incision was made on the right lateral abdomen and an 8 millimeter trocar was inserted under direct visualization. Another 8 millimeter incision was made just superior to the umbilicus and an 8 millimeter trocar was inserted under direct visualization. The 5 mm port was then removed and this was replaced with another 8 mm robotic port. The robotic arms were brought up to the patient's bedside and secured to the ports. The camera and instruments were inserted. I then moved over to the robotic console and took control of the camera and instruments. After careful inspection of the abdominal cavity, I began scoring the peritoneum along the right lower quadrant using scissors with electrocautery. The preperitoneal plane was entered and this was carefully dissected caudally along the inferior epigastric vessels. Careful dissection with scissors with electrocautery and blunt dissection was used to continue this dissection. I dissected far enough laterally to allow for mesh placement, and also dissected medially to identify the pubic arch and Rodri's ligament. The hernia sac was identified and carefully dissected posteriorly. The cord contents were also identified and the peritoneum was carefully dissected far enough posteriorly to allow for mesh placement. Once an adequate pocket was created, I then placed the mesh within the preperitoneal pocket and carefully unfolded it. The mesh was centered on the hernia defect with adequate overlap circumferentially. The inferior edge of the mesh was inspected to ensure that it was far enough away from the peritoneal edge. The mesh appeared in proper position overlying the entire myopectineal orifice. The mesh was secured using 3-0 Vicryl simple interrupted sutures in Rodri's ligament, the superior medial edge, and superior lateral ed
[2023-02-07] MEDS: oxyCODONE HCL (*CRX) 5 MG TAB IR PO (12:50)
== END 2023-02-07 13:03 | disposition home or self-care (01) ==
PROVIDERS: PCP Internal Medicine; Visit Provider Surgery
PROC: 8E0Y4CZ Robotic Assisted Procedure of Lower Extremity, Percutaneous Endoscopic Approach (ICD-10-PCS; CPT 49650; principal; 2023-02-07 09:00)
DX: K40.90 Unilateral inguinal hernia, without obstruction or gangrene, not specified as recurrent (principal); I10 Essential (primary) hypertension; E78.00 Pure hypercholesterolemia, unspecified; E89.0 Postprocedural hypothyroidism; Z86.718 Personal history of other venous thrombosis and embolism; Z79.82 Long term (current) use of aspirin; Z79.01 Long term (current) use of anticoagulants; Z95.4 Presence of other heart-valve replacement; Z95.0 Presence of cardiac pacemaker; Z87.891 Personal history of nicotine dependence
CPT/HCPCS: 49650; S2900; 36415; 85610; 85730; 86850; 86900; 86901; 93005; A9270; C1781; J0690; J1100; J1885; J2405; J2704; J3010; J7120

== ENCOUNTER 2023-02-20 07:28 | Outpatient (RCR) | payer MEDICARE, SELFPAY ==
[2022-12-12 09:08] LABS: INR 3.5
[2023-02-20 07:56] LABS: INR 2.8; Prothrombin Time 28.2 Seconds (9.50-12.10)
== END 2023-03-12 23:59 | disposition home or self-care (01) ==
LOC: CHSLAB 07:28
PROVIDERS: PCP Internal Medicine; Visit Provider Internal Medicine
DX: Z51.81 Encounter for therapeutic drug level monitoring (principal); Z79.01 Long term (current) use of anticoagulants
CPT/HCPCS: 36415; 85610

== ENCOUNTER 2023-06-14 08:33 | Outpatient (RCR) | payer MEDICARE, SELFPAY ==
[2023-03-28 09:25] LABS: Prothrombin Time 39.6 Seconds (9.50-12.10)
[2023-05-10 08:48] LABS: INR 3.5; Prothrombin Time 35.4 Seconds (9.50-12.10)
[2023-06-14 08:58] LABS: Prothrombin Time 30.5 Seconds (9.50-12.10)
== END 2023-06-26 23:59 | disposition home or self-care (01) ==
LOC: CHSLAB 08:33
PROVIDERS: PCP Internal Medicine; Visit Provider Internal Medicine
DX: Z51.81 Encounter for therapeutic drug level monitoring (principal); Z79.01 Long term (current) use of anticoagulants
CPT/HCPCS: 36415; 85610

== ENCOUNTER 2023-09-27 11:15 | Outpatient (RCR) | payer MEDICARE, SELFPAY ==
[2023-07-19 10:00] LABS: INR 3.8; Prothrombin Time 37.9 Seconds (9.50-12.10)
[2023-08-23 11:18] LABS: Prothrombin Time 20.6 Seconds (9.50-12.10)
[2023-08-29 09:10] LABS: Prothrombin Time 20.4 Seconds (9.50-12.10)
[2023-09-27 11:47] LABS: INR 3.5; Prothrombin Time 35.1 Seconds (9.50-12.1)
== END 2023-10-17 23:59 | disposition home or self-care (01) ==
LOC: CHSLAB 11:15
PROVIDERS: PCP Internal Medicine; Visit Provider Internal Medicine
DX: Z51.81 Encounter for therapeutic drug level monitoring (principal); Z79.01 Long term (current) use of anticoagulants
CPT/HCPCS: 36415; 85610

== ENCOUNTER 2023-12-26 09:21 | Outpatient (RCR) | payer MEDICARE, SELFPAY ==
[2023-11-02 09:41] LABS: INR 2.6; Prothrombin Time 26.6 Seconds (9.50-12.1)
[2023-12-06 09:07] LABS: INR 4.7; Prothrombin Time 45.9 Seconds (9.50-12.1)
[2023-12-26 10:04] LABS: INR 1.5
== END 2024-01-31 23:59 | disposition home or self-care (01) ==
LOC: CHSLAB 09:21
PROVIDERS: PCP Internal Medicine; Visit Provider Internal Medicine
DX: Z51.81 Encounter for therapeutic drug level monitoring (principal); Z79.01 Long term (current) use of anticoagulants
CPT/HCPCS: 36415; 85610

== ENCOUNTER 2024-04-23 08:55 | Outpatient (CLI) | payer MEDICARE, SELFPAY ==
--- NOTE | ~2024-04-23 | CT_ITS ---
CT of the Abdomen and Pelvis: Indication: Gastroenteritis, diarrhea Technique: 2.5 mm axial scans were obtained through the abdomen and pelvis following intravenous adm inistration of 100 cc of Omnipaque 350. Dose reduction technique was used on this scan by utilizing a utomated exposure control and iterative reconstruction technique. The dose-length product (DLP) was 4 62.26 mGy-cm. COMPARISON: 01/03/2023 Findings: Scans through the lung bases are unremarkable. Multiple simple appearing hepatic cysts are present. There is a hypodense noncystic mass in the dome the liver measuring 6.5 x 3.8 cm, stable from prior exam. The spleen, pancreas, adrenals and kidneys are within normal limits. Cholecystectomy clips are present. There are atherosclerotic calcifications of the aorta. No lymphadenopathy. Suspected wall thickening of the rectum/distal sigmoid colon. No bowel obstruction. No abscess or kellen e air. Images through the pelvis were performed. Urinary bladder unremarkable. No pelvic mass seen. No ascit es. Impression: Suspected wall thickening of the distal sigmoid colon and rectum, compatible with infectious/inflamma tory colitis. Neoplasm felt to be less likely given the overall appearance and extent of involvement. Stable 6.5 x 3.8 cm noncystic hypodense hepatic mass at the dome of the liver. Multiple additional si mple hepatic cysts are also unchanged. Reviewed, dictated and finalized at [facility]. Impression: Suspected wall thickening of the distal sigmoid colon and rectum, compatible wi th infectious/inflammatory colitis. Neoplasm felt to be less likely given the o verall appearance and extent of involvement. Stable 6.5 x 3.8 cm noncystic hypodense hepatic mass at the dome of the liver. Multiple additional simple hepatic cysts are also unchanged.
[2024-04-23 09:15] LABS: Estimated Glomerular Filt Rate 54
== END 2024-04-23 08:56 | disposition home or self-care (01) ==
LOC: CHSIMG 08:57
PROVIDERS: PCP Internal Medicine; Visit Provider Internal Medicine
DX: K52.9 Noninfective gastroenteritis and colitis, unspecified (principal); R16.0 Hepatomegaly, not elsewhere classified; K76.89 Other specified diseases of liver
CPT/HCPCS: 74177; Q9967

== ENCOUNTER 2024-04-30 08:33 | Outpatient (CLI) | payer MEDICARE, SELFPAY ==
[2024-04-30 08:52] LABS: Basophils Absolute Auto 0.05 K/mm3 (0.00-0.10); Basophils Percent Auto 0.6 % (0.0-1.0); Eosinophils Absolute Auto 0.07 K/mm3 (0.02-0.50); Eosinophils Percent Auto 0.9 % (1.0-6.0); Hematocrit 40.9 % (37.0-46.0); Hemoglobin 13.8 g/dL (12.4-15.3); Immature Granulocyte Absolute 0.06 K/mm3 (0.00-0.00); Immature Granulocyte Percent A 0.8 % (0.0-0.0); Lymphocytes Absolute Auto 1.37 K/mm3 (1.10-4.50); Lymphocytes Percent Auto 17.2 % (18.0-42.0); Mean Corpuscular HGB Conc 33.7 g/dL (32-36); Mean Corpuscular Hemoglobin 29.8 pg (27.0-31.0); Mean Corpuscular Volume 88.3 fL (78.0-102.0); Neutrophils Absolute Auto 5.62 K/mm3 (1.70-7.20); Neutrophils Percent Auto 70.5 % (50.0-70.0); Platelet Count Result 208 K/mm3 (150-420); Red Blood Count 4.63 M/mm3 (4.70-6.10); Red Cell Distribution Width 13.4 % (11.6-14.4)
[2024-04-30 09:14] LABS: Prothrombin Time 52.9 Seconds (9.50-12.1)
[2024-04-30 09:29] LABS: INR 5.5
[2024-04-30 09:41] LABS: Alanine Aminotransferase 37 U/L (16-63); Albumin Level 3.7 g/dL (3.4-5.0); Alkaline Phosphatase 54 U/L (46-116); Anion Gap 6 mmol/L (4-12); Aspartate Amino Transferase 30 U/L (15-37); Bilirubin,Total 0.6 mg/dL (0.00-1.00); Blood Urea Nitrogen 15 mg/dL (7-18); Calcium 8.4 mg/dL (8.5-10.1); Carbon Dioxide 29 mmol/L (21-32); Chloride 106 mmol/L (98-108); Estimated Glomerular Filt Rate 52; Glucose 99 mg/dL (70-99); Osmolality Calculated 292 mOsm/kg (285-295); Potassium 4.2 mmol/L (3.5-5.1); Sodium 141 mmol/L (136-145); Total Protein 6.5 g/dL (6.4-8.2)
[2024-04-30 09:49] LABS: Toxigenic C. Diff NEGATIVE (NEGATIVE)
== END 2024-04-30 08:34 | disposition home or self-care (01) ==
LOC: CHSLAB 08:35
PROVIDERS: PCP Internal Medicine; Visit Provider Internal Medicine
DX: Z79.01 Long term (current) use of anticoagulants (principal); A04.72 Enterocolitis due to Clostridium difficile, not specified as recurrent
CPT/HCPCS: 36415; 80053; 85025; 85610; 87493

== ENCOUNTER 2024-05-02 14:23 | Outpatient (RCR) | payer MEDICARE, SELFPAY ==
[2024-02-06 09:26] LABS: INR 3.6
[2024-03-12 09:47] LABS: INR 3.2; Prothrombin Time 32.2 Seconds (9.50-12.1)
[2024-04-14 09:57] LABS: INR 4.4; Prothrombin Time 43.4 Seconds (9.50-12.1)
[2024-05-02 14:45] LABS: INR 3.3
== END 2024-05-06 23:59 | disposition home or self-care (01) ==
LOC: CHSLAB 14:23
PROVIDERS: PCP Internal Medicine; Visit Provider Internal Medicine
DX: Z51.81 Encounter for therapeutic drug level monitoring (principal); Z79.01 Long term (current) use of anticoagulants
CPT/HCPCS: 36415; 85610

== ENCOUNTER 2024-06-13 07:30 | Outpatient (CLI) | payer MEDICARE, SELFPAY ==
[2024-06-13 07:43] LABS: Hematocrit 43.9 % (37.0-46.0); Hemoglobin 15.1 g/dL (12.4-15.3); Mean Corpuscular HGB Conc 34.4 g/dL (32-36); Mean Corpuscular Hemoglobin 29.9 pg (27.0-31.0); Mean Corpuscular Volume 86.9 fL (78.0-102.0); Mean Platelet Volume 8.7 fl (8.7-11.0); Platelet Count Result 226 K/mm3 (150-420); Red Blood Count 5.05 M/mm3 (4.70-6.10); Red Cell Distribution Width 12.8 % (11.6-14.4); White Blood Count 8.7 K/mm3 (4.8-10.8)
[2024-06-13 08:01] LABS: Hemoglobin A1C 5.4 % (<5.7)
[2024-06-13 08:13] LABS: Add Urine Microscopic? YES; Appearance Urine Clear (Clear); Bilirubin Urine Negative (Negative); Blood Urine 1+ (Negative); Color Urine Yellow (Yellow); Glucose Urine UA Negative (Negative); INR 2.7; Ketones Urine Negative (Negative); Leukocyte Esterase Ur Negative (Negative); Nitrate Urine Negative (Negative); Protein Urine Negative (Negative); Prothrombin Time 27.3 Seconds (9.50-12.1); Urobilinogen Urine 0.2 mg/dL (0.2-1.0)
[2024-06-13 08:17] LABS: Bacteria Urine Trace /hpf; Squamous Epithelial Cell Urine Rare /hpf (Few); WBC Urine None seen /hpf (0-3)
[2024-06-13 08:36] LABS: Anion Gap 9 mmol/L (4-12); Blood Urea Nitrogen 16 mg/dL (7-18); Calcium 8.6 mg/dL (8.5-10.1); Carbon Dioxide 29 mmol/L (21-32); Chloride 102 mmol/L (98-108); Cholesterol 155 mg/dL (0-200); Estimated Glomerular Filt Rate 59; Glucose 102 mg/dL (70-99); HDL Direct 40 mg/dL (40-60); LDL Cholesterol Calculated 92 mg/dL (<130); Osmolality Calculated 291 mOsm/kg (285-295); Potassium 4.4 mmol/L (3.5-5.1); Prostate Specific Antigen 1.3 ng/mL (< OR = 4.0); Sodium 140 mmol/L (136-145); Triglycerides 114 mg/dL (0-150)
== END 2024-06-13 07:31 | disposition home or self-care (01) ==
LOC: CHSLAB 07:32
PROVIDERS: PCP Internal Medicine; Visit Provider Internal Medicine
DX: I10 Essential (primary) hypertension (principal); E78.2 Mixed hyperlipidemia; R73.01 Impaired fasting glucose; R53.82 Chronic fatigue, unspecified; Z12.5 Encounter for screening for malignant neoplasm of prostate; Z79.01 Long term (current) use of anticoagulants
CPT/HCPCS: 36415; 80048; 80061; 81001; 83036; 84153; 85027; 85610; G0103

== ENCOUNTER 2024-07-31 12:56 | Outpatient (RCR) | payer MEDICARE, SELFPAY ==
[2024-05-19 10:20] LABS: INR 2.5; Prothrombin Time 24.9 Seconds (9.50-12.1)
[2024-07-31 13:34] LABS: INR 2.8
== END 2024-08-17 23:59 | disposition home or self-care (01) ==
LOC: CHSLAB 12:56
PROVIDERS: PCP Internal Medicine; Visit Provider Internal Medicine
DX: Z79.01 Long term (current) use of anticoagulants (principal)
CPT/HCPCS: 36415; 85610

== ENCOUNTER 2024-08-18 07:37 | Outpatient (CLI) | payer MEDICARE, SELFPAY ==
--- NOTE | ~2024-08-18 | DEXA_ITS ---
Bone Density Report Name: ASYA ALEMAN Age: 74 Sex: Male Ethnicity: White Date of : 1950 Indication: screening for osteoporosis; cancer; Referring Provider: Alex Gifford Study: Bone densitometry was performed. Exam Date: August 18, 2024 Accession number: [id number] Bone Density: Region BMD T-score Z-score Classification AP Spine(L1-L4) 1.017 -0.7 0.3 Normal Femoral Neck (Left) 0.747 -1.3 0.0 Osteopenia Total Hip (Left) 0.942 -0.6 0.2 Normal Femoral Neck (Right) 0.854 -0.6 0.7 Normal Total Hip (Right) 1.011 -0.1 0.6 Normal Femoral Neck Mean 0.800 -1.0 0.4 Normal Total Hip Mean 0.976 -0.4 0.4 Normal World Health Organization criteria for BMD impression classify patients as: Normal (T-score at or above -1.0), Osteopenia (T-score between -1.0 and -2.5), or Osteoporosis (T-score at or below -2.5). 10-year Fracture Risk(1): Major Osteoporotic Fracture 6.0% Hip Fracture 1.5% Reported Risk Factors: [place] (), Neck BMD=0.747, BMI=28.6 (1) FRAX(R) Version 3.08. Fracture probability calculated for an untreated patient. Fracture probability may be lower if the patient has received treatment. Previous Exams: Region Exam Age BMD T-score BMD Change BMD Change Date g/cm2 vs Baseline vs Previous Total Hip(Left) 08/18/2024 74 0.942 -0.6 0.005 (0.5%) 0.005 (0.5%) 02/16/2021 70 0.937 -0.6 Total Hip(Right) 08/18/2024 74 1.011 -0.1 0.044 (4.5%)* 0.044 (4.5%)* 02/16/2021 70 0.967 -0.4 *Denotes significance at 95% confidence level, LSC for Total Hip = 0.027 g/cm2 Clinical Information Provided by Patient: Has used the following medications: Vitamin D Has the following medical conditions: Cancer Patient maximum height was 69 No regular weight bearing exercise Drinks caffeinated beverages Impression: The patient has low bone mass, based on the Left Femoral Neck T-score. No significant bone loss was observed. Discussion: BONE DENSITY IS LOW AT ONE OR MORE SKELETAL SITES. This patient's lowest T-score is low at one or more skeletal sites. It meets the World Health Organization's (WHO) criteria for ?low bone mass? (T-score between -1.0 and -2.5). The patient's 10-year risk of fracture as calculated by FRAX is less than the threshold where pharmacological therapy is recommended by the National Osteoporosis Foundation (NOF). However, all treatment decisions require clinical judgment and consideration of individual patient factors, including patient preferences, comorbidities, previous drug use, risk factors not captured in the FRAX model (e.g., frailty, falls, vitamin D deficiency, increased bone turnover, interval significant decline in bone density) and possible under or overestimation of fracture risk by FRAX. The patient should follow a healthful lifestyle (good nutrition with adequate calcium and vitamin D, and appropriate weight-bearing exercise). Follow-Up: Consider repeating this study in 2 to 3 years to reassess this patient's status, or sooner if there is some new clinical indication. Reported by: LIZABETH on 08/18/2024 8:05:00 AM. Reviewed, dictated and finalized at location A.
== END 2024-08-18 07:38 | disposition home or self-care (01) ==
LOC: CHSIMG 07:39
PROVIDERS: PCP Internal Medicine; Visit Provider Internal Medicine
DX: M85.88 Other specified disorders of bone density and structure, other site (principal)
CPT/HCPCS: 77080

== ENCOUNTER 2024-09-22 10:45 | Outpatient (CLI) | payer MEDICARE, SELFPAY ==
--- NOTE | ~2024-09-22 | XR_ITS ---
EXAMINATION: XR thoracic spine 3V DATE: 09/22/2024 11:42 INDICATION: Back pain. Fall. TECHNIQUE: 3 views of thoracic spine were obtained. COMPARISON: Chest 2 views 10/07/2015 FINDINGS: There is 13 degrees dextroscoliosis of thoracic spine. There is mild chronic anterior wedgi ng of multiple lower thoracic vertebral bodies. There is mild to moderately decreased disc height at many levels in thoracic spine. There are endplate osteophytes at most levels. 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 There are pacer wires in right atrium and right ventricle. 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 IMPRESSION: 1. Moderate thoracic spondylosis. 2. Thoracic dextroscoliosis. Reviewed, dictated and finalized at location B.
--- NOTE | ~2024-09-22 | XR_ITS ---
EXAMINATION: XR lumbar spine 2-3V DATE: 09/22/2024 11:41 INDICATION: Back pain. Fall. TECHNIQUE: 3 views of lumbar spine were obtained. COMPARISON: CT abdomen and pelvis 04/23/2024 FINDINGS: There is 7 degrees dextrocurvature of thoracolumbar spine. There is 3 mm retrolisthesis of L2 on L3 and L3 on L4. There is a Schmorl's node of the superior endplate of L1. There is moderately decreased disc height at L2-L3 and L3-L4. There are endplate osteophytes at most levels. 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 Surgical clips in the right upper q uadrant are likely from cholecystectomy. IMPRESSION: 1. Moderate lumbar spondylosis. Reviewed, dictated and finalized at location B.
--- NOTE | ~2024-09-22 | XR_ITS ---
XR ribs RT 2V w CXR 2V Ordering provider: Alex Gifford History: . Fall X 2 days - midback/posterior 7-12 rib pain . Comparison: October 07, 2015 FINDINGS: BONES: No acute rib fracture. MEDIASTINUM: The cardiac silhouette is not enlarged. Left bipolar pacemaker. Right abandoned pacemake r. LUNGS: No infiltrates, effusions or pneumothorax. OTHER: No free air under the diaphragm. IMPRESSION: 1. No right rib fracture. 2. No acute cardiopulmonary findings. Reviewed, dictated and finalized at location A.
[2024-09-22 11:20] LABS: Add Urine Microscopic? YES; Appearance Urine Clear (Clear); Bilirubin Urine Negative (Negative); Blood Urine 1+ (Negative); Color Urine Yellow (Yellow); Glucose Urine UA Negative (Negative); Ketones Urine Negative (Negative); Leukocyte Esterase Ur Negative (Negative); Nitrate Urine Negative (Negative); Protein Urine Negative (Negative); Specific Grav Ur >= 1.030 (1.010-1.020)
[2024-09-22 11:26] LABS: Bacteria Urine Rare /hpf; WBC Urine None seen /hpf (0-3)
--- OUTSIDE RECORDS SUMMARY | 2024-09-22 12:47 | XMS_ITS | Clinical Summary ---
Author Organization [facility] [employer] Address [address] [place] [address] Care Team Providers Care Mixer Slagman Name Role Phone Alex Gifford MD Primary Care Provider [phone] Source Comments [facility] [employer],non-owned Affiliates and Associated Physician Practices is amultiple site organization consisting of ambulatory clinics and hospital sitesin [place], [place], [place] and [place]. This disclosure is being madepursuant to the Care Everywhere program and may not contain all information available regarding this patient. Last updated 18.[facility] [employer] Allergies No known active allergies Medications * Be aware that medications may not be up to date on this document. Alwaysverify current medications with the patient. Medication Sig Dispensed Refills Start Date End Date Status SYNTHROID 137 MCG tablet 08/31/2021 Active pravastatin (PRAVACHOL) 40 MG tablet 11/09/2021 Active warfarin (COUMADIN) 5 MG tablet 12/12/2021 Active ASPIRIN 81 PO Active Social History Tobacco Use Types Packs/Day Years Used Date Smoking Tobacco: Never Assessed Sex and Gender Information Value Date Recorded Sex Assigned at Not on file Gender Identity Not on file Sexual Orientation Not on file Last Filed Vital Signs Vital Sign Reading Time Taken Comments Blood Pressure - - Pulse - - Temperature - - Respiratory Rate - - Oxygen Saturation - - Inhaled Oxygen Concentration - - Weight 83.9 kg (185 lb) 01/18/2022 1:28 PM CDT Height 175.3 cm (5' 9 ) 01/18/2022 1:28 PM CDT Body Mass Index 27.32 01/18/2022 1:28 PM CDT Plan of Treatment Health Maintenance Due Date Last Done Comments OGROCCO (AGES 45-75) - COL ON CA SCREENING 1950 COLON MONITORING 1950 COLONOSCOPY - COLON CA SCREENING 1950 CT COLONOGRAPHY - COLON CA SCREENING 1950 Colorectal Cancer Screening 1950 FIT - COLON CA SCREENING 1950 FLEX SIG - COLON CA SCREENING 1950 HEPATITIS C SCREENING 07/07/1968 DTAP/TDAP/TD VACCINES (1 - Tdap) 1969 PNEUMOCOCCAL VACCINE 50+ (1 of 1 - PCV) 2000 ZOSTER VACCINE (1 of 2) 2000 COVID-19 VACCINE (1 - 2023-2 5 season) 2024 INFLUENZA VACCINE (#1) 2024 DEPRESSION SCREENING 07/16/2024 MEDICARE AWV CALENDAR YEAR 2024 Respiratory Syncytial Virus (RSV) Vaccine Pt: or over 60 yrs (1 - 1-dose 75+ series) 2025 HEPATITIS B VACCINE Aged Out No longe r eligible based on patient's age to complete this topic HIB VACCINE Aged Out No longer eligi ble based on patient's age to complete this topic HPV VACCINE Aged Out No longer eligi ble based on patient's age to complete this topic MENINGOCOCCAL (Group B) VACCINE Aged Out No longer eligible based on patient's age to complete this topic MENINGOCOCCAL VACCINE Aged Out No pa abril eligible based on patient's age to complete this topic Care Teams Mixer Slagman Relationship Specialty Start Date End Date Alex Gifford MD [address] [place] [address] PCP - General Internal Medicine 01/18/22
--- OUTSIDE RECORDS SUMMARY | 2024-09-22 12:47 | XMS_ITS | Clinical Summary ---
Author Organization [facility] Address [address] [place] [address] Care Team Providers Care Press Technician Name Role Phone Unavailable Primary Care Provider Unavailabl e Social History Tobacco Use Types Packs/Day Years Used Date Smoking Tobacco: Never Assessed Sex and Gender Information Value Date Recorded Sex Assigned at Not on file Legal Sex Male 9:15 PM CDT Gender Identity Not on file Sexual Orientation Not on file Plan of Treatment Health Maintenance Due Date Last Done Comments Colorectal Cancer Screening Colonoscopy (10 Years) 1950 Hepatitis C 1968 DTaP, Tdap and Td Vaccines ( 1 - Tdap) 1969 Zoster Vaccines (1 of 2) 2000 Pneumococcal Vaccine: 65+ Ye ars (1 of 1 - PCV) 2015 COVID-19 Vaccine ( - 2023-2 5 season) 2024 Influenza Adult (#1) 2024 RSV Immunization or 60+ Years (1 - 1-dose 75+ series) 2025 Meningococcal B Vaccine Aged Out No l onger eligible based on patient's age to complete this topic Meningococcal Vaccine Aged Out No pa abril eligible based on patient's age to complete this topic RSV Immunizations Under 20 Months Aged Out No longer eligible based on patient's age to complete this topic
--- OUTSIDE RECORDS SUMMARY | 2024-09-22 12:47 | XMS_ITS | Referral Summary ---
Author Organization [facility] [employer] Address [address] [place] [address] Care Team Providers Care Wastewater Treatment Plant Chemist Name Role Phone Alex Gifford MD Primary Care Provider [phone] Source Comments [facility] [employer]non-owned Affiliates and Associated Physician Practices is amultiple site organization consisting of ambulatory clinics and hospital sitesin [place], [place], [place] and [place]. This disclosure is being madepursuant to the Care Everywhere program and may not contain all information available regarding this patient. Last updated 18.[facility] [employer] Allergies No known active allergies Medications * [...] 01/18/2022 1:28 PM CDT Plan of Treatment Not on file Care Teams Wastewater Treatment Plant Chemist Relationship Specialty Start Date End Date Alex Gifford MD [address] [place] [address] PCP - General Internal Medicine 01/18/22
--- OUTSIDE RECORDS SUMMARY | 2024-09-22 12:47 | XMS_ITS | Patient Health Summary ---
Author Organization [facility] [employer] Address [address] [place] [address] Care Team Providers Care Business Development Recruiter Name Role Phone Alex Gifford MD Primary Care Provider Note from [facility],non-owned Affiliates and Associated Physician Practices is amultiple site organization consisting of ambulatory clinics and hospital sitesin [place], [place], [place] and [place]. This disclosure is being madepursuant to the Care Everywhere program and may not contain all information available regarding this patient. Last updated 18.[facility] [employer] Allergies No known active allergies Medications * Be aware that medications may not be up to date on this document. Alwaysverify current medications with the patient. * SYNTHROID 137 MCG tablet(Started 08/31/2021) * pravastatin (PRAVACHOL) 40 MG tablet(Started 11/09/2021) * warfarin (COUMADIN) 5 MG tablet(Started 12/12/2021) * ASPIRIN 81 PO Social History Tobacco Use Types Packs/Day Years [...] Mass Index 27.32 01/18/2022 1:28 PM CDT Procedures * XR SHOULDER LEFT 2VW OR MORE(Performed 01/18/2022) Performed for Chronic left shoulder pain Results * XR SHOULDER LEFT 2VW OR MORE (01/18/2022 1:34 PM CDT) Anatomical Region Laterality Modality Upper Extremity Computed Radiogr aphy Narrative 01/18/2022 1:37 PM CDT Sherri Nelson RT 01/19/2022 10:31 AM X-RAY: Three views of the left shoulder(s) obtained 01/18/2022 including AP, axillary lateral and outlet radiographs reveal mildly narrowed glenohumeral distant and preserved acromiohumeral distance with a Type 2 acromion. No bony abnormalities are otherwise noted. Pacemaker is overlying. Os acromial. Kady Ge MD DIAGNOSTIC IMAGING ORDERABLES Care Teams Business Development Recruiter Relationship Specialty Start Date End Date Alex Gifford MD [address] [place] [id number] PCP - General Internal Medicine 01/18/22
--- OUTSIDE RECORDS SUMMARY | 2024-09-22 12:47 | XMS_ITS | Clinical Summary ---
Author Organization [facility] Address [address] [place] [address] Phone Care Team Providers Care Adjunct Spanish Instructor Name Role Phone Alex Gifford MD Primary Care Provider + Social History Tobacco Use Types Packs/Day Years Used Date Smoking Tobacco: Never Assessed Sex and Gender Information Value Date Recorded Sex Assigned at Not on file Legal Sex Male 3:58 PM RECONNAISSANCE MAN Gender Identity Not on file Sexual Orientation Not on file Plan of Treatment Health Maintenance Due Date Last Done Comments DTAP/TDAP/TD VACCINES (1 - Tdap) 1969 FIT-DNA Q 3 years 1995 FIT/FOBT Q 1 year 1995 Flex Sig/CT Colonography Q 5 years 1995 PNEUMOCOCCAL VACCINE 50+ YEARS (1 of 1 - PCV) 07/12/20 00 ZOSTER VACCINE (1 of 2) 2000 COLORECTAL SCREENING 08/22/2017 08/22/2007 Colorectal Cancer Screening 08/22/2017 INFLUENZA VACCINE (#1) 2024 RSV VACCINE (60+ or ) (1 - 1-dose 75+ series) 2025 Procedures Procedure Name Priority Date/Time Associated Diagnosis Comments ENDOSCOPY, COLON, SCREENING Routine 08/22/2007 from Last 3 Months or Most Recently Relevant to Health Maintenance Results * ENDOSCOPY, COLON, SCREENING (08/22/2007) Ruben Haq MD GI PROCEDURE ORDERABLES Stephania louie Result [facility] from Last 3 Months or Most Recently Relevant to Health Maintenance Insurance [employer] O OPEN ACCESS Care Teams Adjunct Spanish Instructor Relationship Specialty Start Date End Date Alex Gifford MD [address] [place] [address] PCP - General Internal Medicine 08/27/12
--- OUTSIDE RECORDS SUMMARY | 2024-09-22 12:47 | XMS_ITS | Continuity of Care Document ---
Author Organization [facility] Address [address] [place] [address] Phone Care Team Providers Care Furnishings Conservator Name Role Phone Nikita Tamez MD, FACS [...] Diagnoses Date Provider Providers Copied on Encounter [facility], [address], [place], [place], [id number], [place] tel:[phone] [facility] No Information 3 Dashawn Shelton. [address] [place] [address], [address], [place], [address], . tel:[phone] Referring Provider: Alvin Tenorio, [address] [facility], [place], [address]. tel:[phone] [facility] Eye [facility], [address] [place], [place] [address] [address], [place], [place], [address], [phone] [facility] eyes doing well, without complaint. (chief complaint) REGULAR ASTIGMATISMPRESB YOPIA 3 Dashawn Shelton. [address] [place] [address], [address], [place], [place], [id number], . tel:[phone] Referring Provider: Alvin Tenorio, [address] [place] [address], [place], [address]. tel:[phone] [facility], [address] [place], [place] [address] [address], [place], [place], [address], tel:[phone] SEC [facility] No Information 3 Dashawn Shelton. [address] [place] [address], [address], [place], [place], [address], . tel:[phone] Referring Provider: Alvin Tenorio, [address] [place] [address], [place], [address]. tel:[phone] Family History Family Member Type Diagnosis Age At Onset Mother Problem (finding) Strabismus Payers Payer name Insurance type Covered constitution party ID Authoriza tion(s) No Information Social [...]
== END 2024-09-22 10:46 | disposition home or self-care (01) ==
LOC: CHSLAB 10:47
PROVIDERS: PCP Internal Medicine; Visit Provider Internal Medicine
DX: S39.92XA Unspecified injury of lower back, initial encounter (principal); M47.814 Spondylosis without myelopathy or radiculopathy, thoracic region; M41.84 Other forms of scoliosis, thoracic region; M43.06 Spondylolysis, lumbar region
CPT/HCPCS: 71046; 71100; 72072; 72100; 81001

== ENCOUNTER 2024-09-25 13:22 | Outpatient (CLI) | payer MEDICARE, SELFPAY ==
--- NOTE | ~2024-09-25 | US_ITS ---
Renal-Bladder ultrasound Clinical History: Hematuria Technique: Real-time sonographic imaging of the kidneys and urinary bladder was performed. Findings: The right kidney measures 11.4 cm in length and the left kidney measures 10.6 cm. There is no hydronephrosis or renal calculus identified. Renal cortical echogenicity is within normal limits. No renal mass lesion is identified. The urinary bladder is moderately distended at the time of this exam. No intraluminal echoes are iden tified. No abnormal wall thickening is seen. Prostate gland is enlarged Impression: Unremarkable ultrasound of the kidneys and urinary bladder. Enlarged prostate gland. Reviewed, dictated and finalized at location M. Impression: Unremarkable ultrasound of the kidneys and urinary bladder. Enlarged prostate gland.
--- OUTSIDE RECORDS SUMMARY | 2024-09-25 15:04 | XMS_ITS | Referral Summary ---
Author Organization [facility] [employer] Address [address] [place] [address] Care Team Providers Care Dictaphone Operator Name Role Phone Alex Gifford MD Primary Care Provider [phone] Source Comments [facility] [employer],non-owned Affiliates and Associated Physician Practices is amultiple site organization consisting of ambulatory clinics and hospital sitesin [place], [place], [place] and [place]. This disclosure is being madepursuant to the Care Everywhere program and may not contain all information available regarding this patient. Last updated 18.[facility] [employer] Allergies No known active allergies Medications * [...] of Treatment Not on file Care Teams Dictaphone Operator Relationship Specialty Start Date End Date Alex Gifford MD [address] [place] [address] PCP - General Internal Medicine 01/18/22
--- OUTSIDE RECORDS SUMMARY | 2024-09-25 15:04 | XMS_ITS | Clinical Summary ---
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
--- OUTSIDE RECORDS SUMMARY | 2024-09-25 15:04 | XMS_ITS | Clinical Summary ---
Author Organization [facility] Address [address] [place] [address] Care Team Providers Care Oracle Fusion Consultant Name Role Phone Unavailable Primary Care Provider [...]
--- OUTSIDE RECORDS SUMMARY | 2024-09-25 15:04 | XMS_ITS | Clinical Summary ---
Author Organization [facility] [employer] Address [address] [facility] [address] Care Team Providers Care Recovery Room Nurse Name Role Phone Alex Gifford MD Primary Care Provider [phone] [facility] [employer],non-owned Affiliates and Associated Physician Practices is amultiple site organization consisting of ambulatory clinics and hospital sitesin [place], [place], [place] and [place]. This disclosure is being madepursuant to the Care Everywhere program and may not contain all information available regarding this patient. Last updated 18.[facility] [employer] Allergies No known active allergies Medications * [...] to complete this topic MENINGOCOCCAL (Group B) VACC INE SHARED DECISION-MAKING Aged Out No longer eligibl e based on patient's age to complete this topic MENINGOCOCCAL GROUPS A/C/Y/W VACCINE Aged Out No longer eligible b ased on patient's age to complete this topic Care Teams Recovery Room Nurse Relationship Specialty Start Date End Date Alex Gifford MD [address] [place] [address] PCP - General Internal Medicine 01/18/22
--- OUTSIDE RECORDS SUMMARY | 2024-09-25 15:04 | XMS_ITS | Patient Health Summary ---
Author Organization [facility] [employer] Address [address] [place] [address] Care Team Providers Care Sales Outfitter Name Role Phone Alex Gifford MD Primary Care Provider [phone] Note from [facility],non-owned Affiliates and Associated Physician Practices is amultiple site organization consisting of ambulatory clinics and hospital sitesin [place], [place], [place] and [place]. This disclosure is being madepursuant to the Care Everywhere program and may not contain all information available regarding this patient. Last updated 18.[facility] [employer] Allergies No known active allergies Medications [...] Ge MD DIAGNOSTIC IMAGING ORDERABLES Care Teams Sales Outfitter Relationship Specialty Start Date End Date Alex Gifford MD [address] [place] [address] PCP - General Internal Medicine 01/18/22
--- OUTSIDE RECORDS SUMMARY | 2024-09-25 15:04 | XMS_ITS | Continuity of Care Document ---
Author Organization [facility] Address [address] [place] [address] Phone Care Team Providers Care Powder Operator Name Role Phone Nikita Tamez MD, FACS [...] Diagnoses Date Provider Providers Copied on Encounter [facility], [address], [place], [place], [id number], [place] tel:[phone] [facility] No Information 3 Dashawn Shelton. [address] [place] [address], [address], [place], [id number], . tel:[phone] Referring Provider: Alvin Tenorio, [address] [facility], [place], [address]. tel:[phone] [facility] Eye [facility], [address] [place], [place] [address] [address], [place], [place], [address], [phone] [facility] eyes doing well, without complaint. (chief complaint) REGULAR ASTIGMATISMPRESB YOPIA 3 Dashawn Shelton. [address] [place] [address], [address], [place], [place], [address], . tel:[phone] Referring Provider: Alvin Tenorio, [address] [place] [address], [place], [address]. tel:[phone] [facility], [address] [place], [place] [address] [address], [place], [place], [address], tel:[phone] [facility] No Information 3 Dashawn Shelton. [address] [place] [address], [address], [place], [place], [address], . tel:[phone] Referring Provider: Alvin Tenorio, [address] [place] [address], [place], [address]. tel:[phone] Family History Family Member Type Diagnosis Age [...]
== END 2024-09-25 13:23 | disposition home or self-care (01) ==
LOC: CHSIMG 13:24
PROVIDERS: PCP Internal Medicine; Visit Provider Internal Medicine
DX: R31.9 Hematuria, unspecified (principal); N40.0 Benign prostatic hyperplasia without lower urinary tract symptoms
CPT/HCPCS: 76775

== ENCOUNTER 2024-10-24 13:19 | Outpatient (CLI) | payer MEDICARE, SELFPAY ==
--- OUTSIDE RECORDS SUMMARY | 2024-10-24 13:24 | XMS_ITS | Continuity of Care Document ---
Author Organization [facility] Address [address] [place] [address] Phone Care Team Providers Care Sat Math Tutor Name Role Phone Nikita Tamez MD, FACS [...] Diagnoses Date Provider Providers Copied [facility] Encounter [facility], [address], [place], [place], [address], [place] tel:[phone] [facility] No Information 3 Dashawn Shelton. [address] [place] [address], [address], [place], [place], [address], . tel:[phone] Referring Provider: Alvin Tenorio, [address] [facility], [place], [address]. tel:[phone] [facility] Eye [facility], [address] [place], [place] [address] [address], [place], [place], [address], tel:[phone] [facility] REGULAR ASTIGMATISMPRESB YOPIA 3 Dashawn Shelton. [address] [place] [address], [address], [place], [place], [address], . tel:[phone] Referring Provider: Alvin Tenorio, [address] [place] [address], [place], [address]. tel:[phone] [facility], [address] [place], [place] [address] [address], [place], [place], [address], tel:[phone] [facility] No Information 3 Dashawn Shelton. [address] [place] [address], [address], [place], [place], [address], . tel:[phone] Referring Provider: Alvin Tenorio, [address] [place] [address], [place], [address]. tel:[phone] Family History Family Member Type Diagnosis Age [...]
--- OUTSIDE RECORDS SUMMARY | 2024-10-24 13:24 | XMS_ITS | Clinical Summary ---
Author Organization [facility] [employer] Address [address] [place] [address] Care Team Providers Care Clerical Clerk Name Role Phone Alex Gifford MD Primary Care Provider [phone] Source Comments [facility] [employer],non-owned Affiliates and Associated Physician Practices is amultiple site organization consisting of ambulatory clinics and hospital sitesin [place], [place], [place] and [place]. This disclosure is being madepursuant to the Care Everywhere program and may not contain all information available regarding this patient. Last updated 18.[facility] [employer] Allergies No known active allergies Medications * [...] VACCINE (1 - 2023-2 5 season) 2024 DEPRESSION SCREENING 07/16/2024 MEDICARE AWV CALENDAR YEAR 2024 INFLUENZA VACCINE (Season Ended) 2025 Respiratory Syncytial Virus (RSV) Vaccine Pt: or [...] age to complete this topic Care Teams Clerical Clerk Relationship Specialty Start Date End Date Alex Gifford MD [address] [place] [address] PCP - General Internal Medicine 01/18/22
--- OUTSIDE RECORDS SUMMARY | 2024-10-24 13:24 | XMS_ITS | Clinical Summary ---
Author Organization [facility] Address [address] [place] [address] Care Team Providers Care Shearer Helper Name Role Phone Unavailable Primary Care Provider [...] Vaccine ( - 2023-2 5 season) 2024 RSV Immunization or 60+ Years (1 [...]
--- OUTSIDE RECORDS SUMMARY | 2024-10-24 13:24 | XMS_ITS | Clinical Summary ---
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
[2024-10-24 13:33] LABS: Add Urine Microscopic? YES; Appearance Urine Clear (Clear); Bilirubin Urine Negative (Negative); Blood Urine 2+ (Negative); Color Urine Yellow (Yellow); Glucose Urine UA Negative (Negative); Ketones Urine Negative (Negative); Leukocyte Esterase Ur Negative LEU/UL (Negative); Nitrate Urine Negative (Negative); Protein Urine Negative (Negative); Specific Grav Ur >= 1.030 (1.010-1.020); Urobilinogen Urine 0.2 mg/dL (0.2-1.0)
[2024-10-24 13:44] LABS: Bacteria Urine Trace /hpf; Squamous Epithelial Cell Urine Rare /hpf (Few); WBC Urine 0-3 /hpf (0-3)
== END 2024-10-24 13:20 | disposition home or self-care (01) ==
LOC: CHSLAB 13:21
PROVIDERS: PCP Internal Medicine; Visit Provider Internal Medicine
DX: R31.9 Hematuria, unspecified (principal)
CPT/HCPCS: 81001

== ENCOUNTER 2024-11-03 10:19 | Outpatient (CLI) | payer MEDICARE, SELFPAY ==
--- OUTSIDE RECORDS SUMMARY | 2024-11-03 11:40 | XMS_ITS | Clinical Summary ---
Author Organization [facility] Address [address] [place] [address] Care Team Providers Care Websphere Administrator Name Role Phone Unavailable Primary Care Provider [...] Td Vaccines ( 1 - Tdap) 1969 Pneumococcal Vaccine: 50+ Ye ars (1 of 1 - PCV) 2000 Zoster Vaccines (1 of 2) 2000 COVID-19 Vaccine (1 - 2023-2 5 season) 2024 RSV Immunization [...]
--- OUTSIDE RECORDS SUMMARY | 2024-11-03 11:41 | XMS_ITS | Clinical Summary ---
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
--- OUTSIDE RECORDS SUMMARY | 2024-11-03 11:41 | XMS_ITS | Clinical Summary ---
Author Organization [facility] [employer] Address [address] [facility] [place] [address] Care Team Providers Care Assurance Specialist Name Role Phone Alex Gifford MD Primary Care Provider [phone] Source Comments [facility] [employer],non-owned Affiliates and Associated Physician Practices is amultiple site organization consisting of ambulatory clinics and hospital sitesin [place], [place], [place] and [place]. This disclosure is being madepursuant to the Care Everywhere program and may not contain all information available regarding this patient. Last updated 18.[facility] [employer] Allergies No known active allergies Medications * Be aware that medications may not be up to date on this document. Alwaysverify current medications with the patient. 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
--- OUTSIDE RECORDS SUMMARY | 2024-11-03 11:41 | XMS_ITS | Continuity of Care Document ---
Author Organization [facility] Address [address] [place] [address] Phone Care Team Providers Care Operations/Dispatch Name Role Phone Nikita Tamez MD, FACS [...] Diagnoses Date Provider Providers Copied on Encounter [facility], [address], [place], [place], [address], [place] tel:[phone] [facility] No Information 3 Dashawn Shelton. [address] [place] [address], [address], [place], [place], [address], . tel:[phone] Referring Provider: Alvin Tenorio, [address] [facility], [place], [address]. tel:[phone] [facility] Eye [facility], [address] [place], [place] [address] [address], [place], [place], [address], tel:[phone] SEC [facility] REGULAR ASTIGMATISMPRESB YOPIA 3 Dashawn Shelton. [address] [place] [address], [address], [place], [place], [address], . tel:[phone] Referring Provider: Alvin Tenorio, [address] [place] [address], [place], [address]. tel:[phone] [facility], [address] [place], [place] [address] [address], [place], [place], [address], tel:[phone] [facility] No Information 3 Dash[address] Shelton. [address] [place] [address], [address], [place], [place], [address], . tel:[phone] Referring Provider: Alvin Tenorio, [address] [place] [address], [place], [address]. tel:[phone] Family History Family Member Type Diagnosis Age [...]
== END 2024-11-03 10:20 | disposition home or self-care (01) ==
LOC: CHSLAB 10:21
PROVIDERS: PCP Internal Medicine; Visit Provider Internal Medicine
DX: R31.9 Hematuria, unspecified (principal)
CPT/HCPCS: 88112

== ENCOUNTER 2024-11-10 07:50 | Outpatient (CLI) | payer MEDICARE, SELFPAY ==
--- NOTE | ~2024-11-10 | CT_ITS ---
CT of the Abdomen and Pelvis: Indication: Hematuria Technique: 2.5 mm axial scans were obtained through the abdomen and pelvis prior to and following in travenous administration of 130 cc of Omnipaque 350. Dose reduction technique was used on this scan b y utilizing automated exposure control and iterative reconstruction technique. The dose-length produc t (DLP) was 848.48 mGy-cm. COMPARISON: 04/23/2024 Findings: Scans through the lung bases are unremarkable. Multiple hepatic cysts are unchanged. Stable 6.1 x 4.0 cm hypodense mass towards the dome of the live r (series 6 image 29). The spleen, pancreas, adrenals and kidneys are within normal limits. Cholecyst ectomy clips are present. There are atherosclerotic calcifications of the aorta. No lymphadenopathy. No bowel obstruction or bowel wall thickening. There is no evidence to suggest acute appendicitis. Images through the pelvis were performed. Urinary bladder unremarkable. Prostate gland mildly enlarge d. No other pelvic mass seen. No ascites. Impression: No etiology for hematuria identified. No acute abnormality. Stable 6.1 x 4.0 cm hypodense mass towards the dome of the liver. Additional simple hepatic cysts are also unchanged. Reviewed, dictated and finalized at location . Impression: No etiology for hematuria identified. No acute abnormality. Stable 6.1 x 4.0 cm hypodense mass towards the dome of the liver. Additional si mple hepatic cysts are also unchanged.
--- OUTSIDE RECORDS SUMMARY | 2024-11-10 07:55 | XMS_ITS | Clinical Summary ---
Author Organization [facility] [employer] Address [address] [facility] [place] [address] Care Team Providers Care Vehicle Body Maker Name Role Phone Alex Gifford MD Primary Care Provider [phone] Source Comments [facility] [employer],non-owned Affiliates and Associated Physician Practices is amultiple site organization consisting of ambulatory clinics and hospital sitesin [place], [place], [place]. This disclosure is being madepursuant to the Care Everywhere program and may not contain all information available regarding this patient. 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
--- OUTSIDE RECORDS SUMMARY | 2024-11-10 07:55 | XMS_ITS | Clinical Summary ---
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
--- OUTSIDE RECORDS SUMMARY | 2024-11-10 07:55 | XMS_ITS | Continuity of Care Document ---
Author Organization [facility] Address [address] [place] [address] Phone Care Team Providers Care Director Of Application Development Name Role Phone Nikita Tamez MD, FACS [...] Diagnoses Date Provider Providers Copied on Encounter [facility], [address], [place], [place], [id number], [place] tel:[phone] [facility] No Information 3 Dashawn Shelton. [address] [place] [address], [address], [place], [place], [id number], . tel:[phone] Referring Provider: Alvin Tenorio, [address] [facility], [place], [address]. tel:[phone] [facility] Eye [facility], [address] [place], [place] [address] [address], [place], [place], [id number], tel:[phone] [facility] REGULAR ASTIGMATISMPRESB YOPIA 3 Dashawn Shelton. [address] [place] [address], [address], [place], [place], [id number], . tel:[phone] Referring Provider: Alvin Tenorio, [address] [place] [address], [place], [address]. tel:[phone] [facility], [address] [place], [place] [address] [address], [place], [place], [id number], tel:[phone] [facility] No Information 3 Dashawn Shelton. [address] [place] [address], [address], [place], [place], [id number], . tel:[phone] Referring Provider: Alvin Tenorio, [address] [place] [address], [place], [address]. tel:[phone] Family History Family Member Type Diagnosis Age [...]
--- OUTSIDE RECORDS SUMMARY | 2024-11-10 07:55 | XMS_ITS | Clinical Summary ---
Author Organization [facility] Address [address] [place] [address] Care Team Providers Care Factory Expert Name Role Phone Unavailable Primary Care Provider [...]
[2024-11-10 08:26] LABS: Estimated Glomerular Filt Rate > 60
== END 2024-11-10 07:51 | disposition home or self-care (01) ==
LOC: CHSIMG 07:51
PROVIDERS: PCP Internal Medicine; Visit Provider Internal Medicine
DX: R31.9 Hematuria, unspecified (principal)
CPT/HCPCS: 74178; Q9967

== ENCOUNTER 2024-11-10 08:17 | Outpatient (RCR) | payer MEDICARE, SELFPAY ==
[2024-09-10 09:16] LABS: INR 1.9; Prothrombin Time 19.7 Seconds (9.50-12.1)
[2024-10-13 09:30] LABS: INR 4.5; Prothrombin Time 42.9 Seconds (9.50-12.1)
[2024-11-10 08:32] LABS: INR 2.8; Prothrombin Time 28.3 Seconds (9.50-12.1)
== END 2024-12-09 23:59 | disposition home or self-care (01) ==
LOC: CHSLAB 08:17
PROVIDERS: PCP Internal Medicine; Visit Provider Internal Medicine
DX: Z79.01 Long term (current) use of anticoagulants (principal); Z51.81 Encounter for therapeutic drug level monitoring
CPT/HCPCS: 36415; 85610

== ENCOUNTER 2025-01-23 14:15 | Emergency (ER) | payer MEDICARE, SELFPAY ==
[2025-01-23 14:15] VITALS: BP 146/62; PULSE 76; RESP 18; TEMP 38.2; O2SAT 95
--- OUTSIDE RECORDS SUMMARY | 2025-01-23 14:22 | XMS_ITS | Clinical Summary ---
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
--- OUTSIDE RECORDS SUMMARY | 2025-01-23 14:22 | XMS_ITS | Continuity of Care Document ---
Author Organization [facility] Address [address] [place] [address] Phone Care Team Providers Care Vice President Supply Chain Name Role Phone Nikita Tamez MD, FACS Unavailable Unavailab le Allergies, Adverse Reactions, Alerts Substance Reaction Status Criticality No Known allergies Medications Medication Instructions Dosage Effective Dates (start - stop) Status Comments Synthroid 137 mcg tablet take 1 tablet [...] route every day 10 MG - Active pravastatin 40 mg tablet take 1 tablet (40MG) by oral route every day 40 MG - Active Coumadin 5 mg tablet take 1 tablet (5MG) by oral route every day - Active Procedures Procedure Date Allegretto-Lasik Comanaged Allegretto-Lasik Comanaged No Charge Refractive Evaluation 013 No Charge Orbscan Advance Directives Directive Yes / No Effective Date File Name No Information Encounters Encounter Description Practice Location Reason(s) For Visit Diagnoses Date Provider Providers Copied on Encounter [facility], [address], [place], [id number], [place] tel:[phone] [facility] No Information 3 Dashawn Shelton. [address] [place] [address], [address], [place], [id number], . tel:[phone] Referring Provider: Alvin Tenorio, [address] [facility], [place], [address]. tel:[phone] [facility] Eye [facility], [address] [place], [place] [address] [address], [place], [id number], tel:[phone] [facility] REGULAR ASTIGMATISMPRESB YOPIA 3 Dashawn Shelton. [address] [place] [address], [address], [place], [address], . tel:[phone] Referring Provider: Alvin Tenorio, [address] [place] [address], [place], [address]. tel:[phone] [facility], [address] [place], [place] [address] [address], [place], [id number], tel:[phone] [facility] No Information 3 Dashawn Shelton. [address] [place] [address], [address], [place], [address], . tel:[phone] Referring Provider: Alvin Tenorio, [address] [place] [address], [place], [address]. tel:[phone] Family History Family Member Type Diagnosis Age At Onset Mother Problem (finding) Strabismus Payers Payer name Insurance type Covered libertarian ID Authoriza tion(s) No Information Social History [...]
--- OUTSIDE RECORDS SUMMARY | 2025-01-23 14:22 | XMS_ITS | Clinical Summary ---
Author Organization [facility] Address [address] [place] [address] Care Team Providers Care Electrician Elevator Maintenance Name Role Phone Unavailable Primary Care Provider [...]
--- OUTSIDE RECORDS SUMMARY | 2025-01-23 14:22 | XMS_ITS | Clinical Summary ---
Author Organization [facility] Address [address] [facility] [place] [address] Care Team Providers Care Chef De Cuisine Name Role Phone Alex Gifford MD Primary Care Provider [phone] Source Comments [facility],non-owned Affiliates and Associated Physician Practices is amultiple site organization consisting of ambulatory clinics and hospital sitesin [place], [place], [place] and [place]. This disclosure is being madepursuant to the Care Everywhere program and may not contain all information available regarding this patient. 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 Gender Identity Not on file Sexual Orientation Not on file Last Filed Vital Signs Vital Sign Reading Time Taken Comments Blood Pressure - - Pulse - - Temperature - - Respiratory Rate - - Oxygen Saturation - - Inhaled Oxygen Concentration - - Weight 83.9 kg (185 lb) 01/18/2022 1:28 PM CDT Height 175.3 cm (5' 9) 01/18/2022 1:28 PM CDT Body Mass Index [...] MEDICARE AWV CALENDAR YEAR 2024 INFLUENZA VACCINE (#1) 2025 Respiratory Syncytial Virus (RSV) Vaccine Pt: [...] patient's age to complete this topic Insurance [facility] MANAGED MEDICARE ADV Care Teams Chef De Cuisine Relationship Specialty Start Date End Date Alex Gifford MD [address] [place] [address] PCP - General Internal Medicine 01/18/22
--- NOTE | 2025-01-23 14:24 | ED.NAVMDI ---
HPI - Nausea/Vomiting/Diarrhea General Chief complaint: Nausea/Vomiting/Diarrhea Stated complaint: diarrhea; fever Time Seen by Provider: 01/23/25 14:24 Source: patient Mode of arrival: ambulatory Limitations: no limitations History of Present Illness HPI Narrative: Patient is a 74-year-old male with diarrhea for the past week which is watery in nature. He is getting bouts of immediate need to be have diarrhea many times a day. No recent antibiotic use. He has had similar situation with C diff negative per chart in the past last fall. That was related to antibiotics per patient. No abdominal pain. No nausea vomiting. He felt fever and chills today. patient was at the primary doctor today and they sent to the ER for further evaluation. MD elicited complaint: diarrhea Pertinent past history: other ( C diff fall) Onset (ago): week(s) ( 1) Description of vomiting: watery and continuous Description of diarrhea: mucus and watery Associated nausea: No Associated abdominal pain: No Location of pain: none Radiation: does not radiate Pain consistency: other ( none) Severity: moderate Pain scale (0-10): 0 Quality: cramping and other Exacerbating factors: none Relieving factors: none Context: other ( patient has 1 week history of diarrhea and that is unresolving and associated fever chills today) Associated symptoms: denies other symptoms Treatment prior to arrival: other ( none) Related Data Home Medications ?Medication ?Instructions ?Recorded ?Confirmed ?Last Taken ?Type aspirin 81 mg tablet,delayed 81 mg PO DAILY 01/10/23 01/23/25 02/06/23 14:00 History release cholecalciferol (vitamin D3) 25 25 mcg PO DAILY 01/10/23 01/23/25 02/04/23 History mcg (1,000 unit) capsule coenzyme Q10 10 mg capsule (Co 10 mg PO ONCE 01/10/23 01/23/25 02/04/23 History Q-10) levothyroxine 137 mcg tablet 137 mcg PO QAM 01/10/23 01/23/25 02/07/23 04:30 History (Synthroid) pravastatin 40 mg tablet 40 mg PO DAILY 01/10/23 01/23/25 02/06/23 20:00 History valsartan 80 mg tablet 80 mg PO HS 01/10/23 01/23/25 02/06/23 20:00 History warfarin 5 mg tablet 5 mg PO QMWF 01/10/23 01/23/25 02/02/23 History warfarin 5 mg tablet 2.5 mg PO QTUTHSASU 01/31/23 01/23/25 02/01/23 History Allergies Allergy/AdvReac Type Severity Reaction Status Date / Time No Known Allergies Allergy Verified 01/23/25 14:32 Review of Systems Review of Systems: All systems reviewed & are unremarkable except as noted in HPI and below Constitutional: Constitutional: Reports no additional constitutional complaints Eyes: Eyes: Reports no additional eye complaints ENT: Reports system reviewed and no additional complaints, except as documented Cardiovascular: Cardiovascular: Reports no additional cardiovascular complaints Respiratory: Respiratory: Reports no additional respiratory complaints Gastrointestinal: Gastrointestinal: Reports no additional gastrointestinal complaints Genitourinary: Genitourinary: Reports no additional male genitourinary complaints Musculoskeletal: Musculoskeletal: Reports no additional musculoskeletal complaints Integumentary/Breasts: Skin/Breast: Reports system reviewed and no additional complaints, except as docu Neurologic: Reports system reviewed and no additional complaints, except as documented Psychiatric: Psychiatric: Reports no additional psychiatric complaints Endocrine: Endocrine: Reports no additional endocrine complaints Hematologic/Lymphatic: Hematologic/Lymphatic: Reports no additional hematologic/lymphatic complaints Allergic/Immunologic: Allergic/Immunologic: Reports no additional allergic/immunologic complaints [facility] Past Medical History Medical History DVT (deep venous thrombosis) 2014 Aortic stenosis High cholesterol HTN (hypertension) Kidney stones Thyroid cancer Surgical History Surgical History H/O inguinal hernia repair 02/07/23 Laparoscopic right inguinal hernia repair with mesh, da Cristhian assisted History of aortic aneurysm repair Hx of aortic valve replacement 1993, 2009 Hx of cardiac pacemaker H/O partial thyroidectomy 2010 Hx laparoscopic cholecystectomy 2005 Family History Family History Father Alzheimer disease Multiple myeloma Social History Social History Smoking packs per day: 1 Smoking cigarettes per day: 20.0 Years smoked: 8 Smoking pack-years: 8.00 Smoking status: Former smoker Tobacco type: cigarettes Smoking end date: 01/13/73 Alcohol intake: current Alcohol use details: Socially Substance use: never Living arrangements: with family Additional living arrangements comments: Spiritual care concerns: No Exam Const: General: healthy appearing Nutritional Appearance: well nourished Orientation/consciousness: patient oriented x3 Limitations: no limitations HENMT: Head: normal to inspection Ears: external ears normal Face/Nose/Sinus: Normal external nose present Eyes: Conjunctivae: conjunctivae normal Cornea: corneas normal Pupils: Equal, round and reactive pupils present Neck: Neck: normal visual inspection Chest: Chest palpation & inspection: normal inspection of the chest Resp: Effort & Inspection: normal respiratory effort and not labored Auscultation: clear to auscultation bilaterally and no crackles Cardio: Rate: regular rate Rhythm: regular rhythm Heart sounds: no murmurs GI: Inspection: non-distended GI Palp: Yes Soft to palpation and No Tenderness to palpation present (GI) Auscultation: normal bowel sounds : General: Yes bladder normal to palpation Back/Spine/Pelvis: Back: no CVA tenderness Skin: General skin exam: normal color Rashes: no rashes Wounds: no wounds Neuro: General: patient oriented x3, moves all extremities, no meningeal signs, no focal motor deficits and CN's II-XI intact bilaterally Extrem: General: normal to inspection Psych: Mental Status: mental status grossly normal Affect: normal affect Attitude: cooperative Course Vital Signs Vital signs: Vital Signs Temperature 38.2 C H 01/23/25 14:15 Pulse Rate 76 01/23/25 14:15 Respiratory Rate 18 01/23/25 14:15 Blood Pressure 146/62 H 01/23/25 14:15 Pulse Oximetry 95 01/23/25 14:15 Oxygen Delivery Room Air 01/23/25 14:15 Temperature 38.2 C H 01/23/25 14:15 Pulse Rate 65 01/23/25 16:25 Respiratory Rate 14 01/23/25 16:25 Blood Pressure 140/69 01/23/25 16:25 Pulse Oximetry 100 01/23/25 16:25 Oxygen Delivery Room Air 01/23/25 16:25 MDM - Nausea/Vomiting/Diarrhea MDM Narrative Medical decision making narrative: Patient is a 74-year-old male with 1 week history of diarrhea and associated fever chills today. We will do GI workup at this time. Stool sample will be helpful in this situation. Lab Data Attestation: I reviewed the patient's lab results. 01/23/25 14:43 01/23/25 14:43 Labs: Lab Results 01/23/25 01/23/25 Range/Units 14:27 14:43 WBC 14.0 H (4.8-10.8) K/mm3 RBC 4.70 (4.70-6.10) M/mm3 Hgb 13.9 (12.4-15.3) g/dL Hct 40.6 (37.0-46.0) % MCV 86.4 (78.0-102.0) fL MCH 29.6 (27.0-31.0) pg MCHC 34.2 (32-36) g/dL RDW 13.0 (11.6-14.4) % Plt Count 175 (150-420) K/mm3 MPV 9.0 (8.7-11.0) fl Immature Gran % (Auto) 0.4 H (0.0-0.0) % Neut % (Auto) 80.1 H (50.0-70.0) % Lymph % (Auto) 7.6 L (18.0-42.0) % Comal % (Auto) 11.1 H (2.0-11.0) % Eos % (Auto) 0.4 L (1.0-6.0) % Baso % (Auto) 0.4 (0.0-1.0) % Lymph # (Auto) 1.07 L (1.10-4.50) K/mm3 Comal # (Auto) 1.56 H (0.10-0.90) K/mm3 Eos # (Auto) 0.05 (0.02-0.50) K/mm3 Baso # (Auto) 0.05 (0.00-0.10) K/mm3 Abs Immat Gran (auto) 0.05 H (0.00-0.00) K/mm3 Absolute Neuts (auto) 11.25 H (1.70-7.20) K/mm3 Absolute Nucleated RBC 0.00 (0.00-0.00) K/mm3 Nucleated RBC % 0.0 (0-0.0) % Sodium 134 L (137-145) mmol/L Potassium 4.5 (3.4-5.0) mmol/L Chloride 105 (98-107) mmol/L Carbon Dioxide 26 (22-30) mmol/L Anion Gap 3 L (4-12) mmol/L BUN 17 (9-20) mg/dL Creatinine 1.14 (0.7-1.3) mg/dL Estim Creat Clear Calc 51 ml/min Estimated GFR > 60 (59 - ) Glucose 98 (65-110) mg/dL Calculated Osmolality 279 L (285-295) mOsm/kg Lactic Acid 0.9 (0.4-2.0) mmol/L Calcium 8.1 L (8.4-10.2) mg/dL Total Bilirubin 1.2 (0.2-1.3) mg/dL AST 25 (17-59) U/L ALT 13 (6-50) U/L Alkaline Phosphatase 59 (38-126) U/L Total Protein 6.7 (6.3-8.2) g/dL Albumin 3.9 (3.5-5.1) g/dL Lipase 38 (23-300) U/L C. difficile (PCR) Positive A* (NEGATIVE) Discharge Plan Discharge Clinical Impression: C. difficile diarrhea Patient Disposition: Home Condition: Stable Instructions: Antibiotic Form, C. Diff (Clostridioides Difficile) Infection (DC) Additional Instructions: Please follow-up with the primary doctor in the next week. Patient Language: Vietnamese Prescriptions: New vancomycin 125 mg capsule 125 mg PO QID 10 Days Qty: 40 0RF No Action levothyroxine [Synthroid] 137 mcg tablet 137 mcg PO QAM pravastatin 40 mg tablet 40 mg PO DAILY aspirin 81 mg tablet,delayed release (DR/EC) 81 mg PO DAILY warfarin 5 mg tablet 5 mg PO QMWF cholecalciferol (vitamin D3) 25 mcg (1,000 unit) capsule 25 mcg PO DAILY coenzyme Q10 [Co Q-10] 10 mg capsule 10 mg PO ONCE valsartan 80 mg tablet 80 mg PO HS warfarin 5 mg Tablet 2.5 mg PO QTUTHSASU Follow-up/Referrals: Alex Gifford MD [Primary Care Provider] - Time of Disposition: 17:24
[2025-01-23 14:49] LABS: Hematocrit 40.6 % (37.0-46.0); Hemoglobin 13.9 g/dL (12.4-15.3); Immature Granulocyte Percent A 0.4 % (0.0-0.0); Lymphocytes Absolute Auto 1.07 K/mm3 (1.10-4.50); Mean Corpuscular HGB Conc 34.2 g/dL (32-36); Mean Corpuscular Hemoglobin 29.6 pg (27.0-31.0); Mean Corpuscular Volume 86.4 fL (78.0-102.0); Nucleated Red Blood Cells Absolute Auto 0.00 K/mm3 (0.00-0.00); Nucleated Red Blood Cells Perc 0.0 % (0-0.0); Platelet Count Result 175 K/mm3 (150-420); Red Blood Count 4.70 M/mm3 (4.70-6.10); White Blood Count 14.0 K/mm3 (4.8-10.8)
--- OUTSIDE RECORDS SUMMARY | 2025-01-23 14:53 | XMS_ITS | Clinical Summary ---
Author Organization 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
--- OUTSIDE RECORDS SUMMARY | 2025-01-23 14:53 | XMS_ITS | Clinical Summary ---
Author Organization [facility] Address [address] [facility] [place] [address] Care Team Providers Care Maintenance Mechanic Elevators Name Role Phone Alex Gifford MD Primary Care Provider [phone] Source Comments [facility],non-owned Affiliates and Associated Physician Practices is amultiple site organization consisting of ambulatory clinics and hospital sitesin [place], [place], [place] and [place]. This disclosure is being madepursuant to the Care Everywhere program and may not contain all information available regarding this patient. 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
--- OUTSIDE RECORDS SUMMARY | 2025-01-23 14:53 | XMS_ITS | Continuity of Care Document ---
Author Organization [facility] Address [address] [place] [address] Phone Care Team Providers Care Marine Cargo Surveyor Name Role Phone Nikita Tamez MD, FACS [...] Diagnoses Date Provider Providers Copied on Encounter [facility], [address], [place], [place], [id number], [place] tel:[phone] [facility] No Information 3 Dashawn Shelton. [address] [place] [address], [address], [place], [place], [id number], . tel:[phone] Referring Provider: Alvin Tenorio, [address] [facility], [place], [address]. tel:[phone] [facility], [address] [place], [place] [address] [address], [place], [place], [address], tel:[phone] [facility] REGULAR ASTIGMATISMPRESB YOPIA 3 Dashawn Shelton. [address] [place] [address], [address], [place], [place], [id number], . tel:[phone] Referring Provider: Alvin Tenorio, [address] [place] [address], [place], [address]. tel:[phone] [facility], [address] [place], [place] [address] [address], [place], [place], [id number], tel:[phone] [facility] No Information 3 Dashawn Shelton. [address] [place] [address], [address], [place], [place], [address], . tel:[phone] Referring Provider: Alvin Tenorio, [address] [place] [address], [place], [address]. tel:[phone] Family History Family Member Type Diagnosis Age At Onset Mother Problem (finding) Strabismus Payers Payer name Insurance type Covered republican ID Authoriza tion(s) No Information Social History [...]
--- OUTSIDE RECORDS SUMMARY | 2025-01-23 14:53 | XMS_ITS | Clinical Summary ---
Author Organization [facility] Address [address] [place] [address] Care Team Providers Care Street Car Mechanic Name Role Phone Unavailable Primary Care Provider [...]
[2025-01-23 15:00] LABS: Alanine Aminotransferase 13 U/L (6-50); Albumin Level 3.9 g/dL (3.5-5.1); Alkaline Phosphatase 59 U/L (38-126); Anion Gap 3 mmol/L (4-12); Aspartate Amino Transferase 25 U/L (17-59); Bilirubin,Total 1.2 mg/dL (0.2-1.3); Blood Urea Nitrogen 17 mg/dL (9-20); Calcium 8.1 mg/dL (8.4-10.2); Carbon Dioxide 26 mmol/L (22-30); Chloride 105 mmol/L (98-107); Estimated CRCL calculation 51 ml/min; Estimated Glomerular Filt Rate > 60; Glucose 98 mg/dL (65-110); Lipase 38 U/L (23-300); Osmolality Calculated 279 mOsm/kg (285-295); Potassium 4.5 mmol/L (3.4-5.0); Sodium 134 mmol/L (137-145); Total Protein 6.7 g/dL (6.3-8.2)
[2025-01-23 16:25] VITALS: BP 140/69; PULSE 65; RESP 14; O2SAT 100
[2025-01-23 17:18] LABS: Toxigenic C. Diff POSITIVE (NEGATIVE)
[2025-01-23] MEDS: VANCOMYCIN HCL 125 MG ORAL CAPSULE PO (17:27)
--- NOTE | 2025-01-26 12:13 | PC.NURSE ---
Preliminary blood culture report; no growth in 24 hours.
--- NOTE | 2025-01-27 12:23 | PC.NURSE ---
Preliminary blood culture report; no growth in 48 hours.
--- NOTE | 2025-01-30 12:48 | PC.NURSE ---
final blood cultures x2 reviewed. no growth in 5 days. no change in plan of care
== END 2025-01-23 17:31 | disposition home or self-care (01) ==
PROVIDERS: Emergency Provider Emergency Medicine; PCP Internal Medicine
DX: A04.72 Enterocolitis due to Clostridium difficile, not specified as recurrent (principal); I10 Essential (primary) hypertension; Z79.82 Long term (current) use of aspirin; Z79.899 Other long term (current) drug therapy; Z79.01 Long term (current) use of anticoagulants; Z85.850 Personal history of malignant neoplasm of thyroid; Z87.891 Personal history of nicotine dependence
CPT/HCPCS: 36415; 80053; 83605; 83690; 85025; 87493; 99283; A9270

== ENCOUNTER 2025-02-03 10:16 | Outpatient (CLI) | payer MEDICARE, SELFPAY ==
--- OUTSIDE RECORDS SUMMARY | 2025-02-03 10:23 | XMS_ITS | Clinical Summary ---
Author Organization [facility] Address [address] [place] [address] Care Team Providers Care Supervisor Veneer Name Role Phone Alex Gifford MD Primary Care Provider [phone] Source Comments [facility],non-owned Affiliates and Associated Physician Practices is amultiple site organization consisting of ambulatory clinics and hospital sitesin [place], [place], [place] and [place]. This disclosure is being madepursuant to the Care Everywhere program and may not contain all information available regarding this patient. 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
--- OUTSIDE RECORDS SUMMARY | 2025-02-03 10:23 | XMS_ITS | Clinical Summary ---
Author Organization [facility] Address [address] [place] [address] Care Team Providers Care Regional Director Of Finance Name Role Phone Unavailable Primary Care Provider [...]
[2025-02-03 10:36] LABS: Hematocrit 43.3 % (37.0-46.0); Hemoglobin 14.5 g/dL (12.4-15.3); Mean Corpuscular HGB Conc 33.5 g/dL (32-36); Mean Corpuscular Hemoglobin 29.2 pg (27.0-31.0); Mean Corpuscular Volume 87.3 fL (78.0-102.0); Platelet Count Result 242 K/mm3 (150-420); Red Blood Count 4.96 M/mm3 (4.70-6.10); White Blood Count 10.1 K/mm3 (4.8-10.8)
[2025-02-03 11:30] LABS: Alanine Aminotransferase 18 U/L (6-50); Albumin Level 4.3 g/dL (3.5-5.1); Alkaline Phosphatase 60 U/L (38-126); Anion Gap 7 mmol/L (4-12); Aspartate Amino Transferase 29 U/L (17-59); Bilirubin,Total 0.8 mg/dL (0.2-1.3); Blood Urea Nitrogen 21 mg/dL (9-20); Calcium 8.8 mg/dL (8.4-10.2); Carbon Dioxide 25 mmol/L (22-30); Chloride 106 mmol/L (98-107); Estimated Glomerular Filt Rate 59; Glucose 84 mg/dL (65-110); Osmolality Calculated 288 mOsm/kg (285-295); Potassium 4.7 mmol/L (3.4-5.0); Sodium 138 mmol/L (137-145); Total Protein 6.8 g/dL (6.3-8.2)
== END 2025-02-03 10:17 | disposition home or self-care (01) ==
LOC: CHSLAB 10:18
PROVIDERS: PCP Internal Medicine; Visit Provider Internal Medicine
DX: A04.72 Enterocolitis due to Clostridium difficile, not specified as recurrent (principal)
CPT/HCPCS: 36415; 80053; 85027

== ENCOUNTER 2025-02-04 09:00 | Outpatient (CLI) | payer MEDICARE, SELFPAY ==
--- OUTSIDE RECORDS SUMMARY | 2025-02-04 09:15 | XMS_ITS | Clinical Summary ---
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
--- OUTSIDE RECORDS SUMMARY | 2025-02-04 09:15 | XMS_ITS | Continuity of Care Document ---
Author Organization [facility] Address [address] [place] [address] Phone Care Team Providers Care Injection Wax Molder Name Role Phone Nikita Tamez MD, FACS [...] Diagnoses Date Provider Providers Copied on Encounter [facility], [address], [place], [place], [id number], [place] tel:[phone] [facility] No Information 3 Dashawn Shelton. [address] [place] [address], [address], [place], [place], [id number], . tel:[phone] Referring Provider: Alvin Tenorio, [address] [facility], [place], [address]. tel:[phone] [facility], [address] [place], [place] [address] [address], [place], [place], [id number], tel:[phone] [facility] REGULAR ASTIGMATISMPRESB YOPIA 3 Dashawn Shelton. [address] [place] [address], [address], [place], [place], [id number], . tel:[phone] Referring Provider: Alvin Tenorio, [address] [place] [address], [place], [address]. tel:[phone] [facility], [address] [place], [place] [address] [address], [place], [place], [id number], tel:[phone] [facility] No Information 3 Dashawn Shelton. [address] [place] [address], [address], [place], [place], [id number], . tel:[phone] Referring Provider: Alvin Tenorio, [address] [place] [address], [place], [address]. tel:[phone] Family History Family Member Type Diagnosis Age [...]
--- OUTSIDE RECORDS SUMMARY | 2025-02-04 09:15 | XMS_ITS | Clinical Summary ---
Author Organization [facility] Address [address] [facility] [place] [address] Care Team Providers Care Mainspring Strip Gauger Name Role Phone Alex Gifford MD Primary Care Provider [phone] Source Comments [facility],non-owned Affiliates and Associated Physician Practices is amultiple site organization consisting of ambulatory clinics and hospital sitesin [place], [place], [place] and [place]. This disclosure is being madepursuant to the Care Everywhere program and may not contain all information available regarding this patient. Last updated 18.[facility] Allergies No known active allergies Medications * [...] on file Legal Sex Male 5:53 AM BDR Gender Identity Not on file Sexual Orientation [...] patient's age to complete this topic Insurance [facility] MANAGED MEDICARE ADV Care Teams Mainspring Strip Gauger Relationship Specialty Start Date End Date Alex Gifford MD [address] [place] [address] PCP - General Internal Medicine 01/18/22
[2025-02-04 09:53] LABS: Toxigenic C. Diff NEGATIVE (NEGATIVE)
== END 2025-02-04 09:01 | disposition home or self-care (01) ==
LOC: CHSLAB 09:02
PROVIDERS: PCP Internal Medicine; Visit Provider Internal Medicine
DX: A04.72 Enterocolitis due to Clostridium difficile, not specified as recurrent (principal)
CPT/HCPCS: 87493

== ENCOUNTER 2025-02-16 07:44 | Outpatient (RCR) | payer MEDICARE, SELFPAY ==
[2024-12-15 10:07] LABS: INR 3.3; Prothrombin Time 32.2 Seconds (9.50-12.1)
[2025-01-19 09:01] LABS: INR 4.2; Prothrombin Time 40.3 Seconds (9.50-12.1)
[2025-02-16 08:17] LABS: Prothrombin Time 50.7 Seconds (9.50-12.1)
[2025-02-16 08:25] LABS: INR 5.4
== END 2025-03-15 23:59 | disposition home or self-care (01) ==
LOC: CHSLAB 07:44
PROVIDERS: PCP Internal Medicine; Visit Provider Internal Medicine
DX: Z79.01 Long term (current) use of anticoagulants (principal)
CPT/HCPCS: 36415; 85610

== ENCOUNTER 2025-04-30 07:00 | Outpatient (CLI) | payer MEDICARE, SELFPAY ==
--- OUTSIDE RECORDS SUMMARY | 2013-06-27 08:00 | XMS_ITS | Continuity of Care Document ---
Author Organization [facility] Address [address] [place] [address] Phone Care Team Providers Care Pierogi Maker Name Role Phone Nikita Tamez MD, FACS Unavailable Unavailab le Allergies, Adverse Reactions, Alerts Substance Reaction Status Criticality No Known allergies Medications Medication Instructions Dosage Effective Dates (start - stop) Status Comments Coumadin 5 mg tablet take 1 tablet (5MG) by oral route every day - Active pravastatin 40 mg tablet take 1 tablet (40MG) by oral route every day 40 MG - Active Synthroid 137 mcg tablet take 1 tablet (137MCG) by oral route every day 137 MCG - Active niacin ER 1,000 mg tablet,extended release 24 hr take 1 tablet (1000MG) by oral route every day at bedtime after a low-fat snack 1000 MG - Active Co Q-10 100 mg capsule - Active aspirin 81 mg effervescent tablet - Active Multiple Vitamins tablet take 1 tablet by oral route every day with food - Active Zyrtec 10 mg tablet take 1 tablet (10MG) by oral route every day 10 MG - Active Procedures Procedure Date Allegretto-Lasik Comanaged Allegretto-Lasik Comanaged No Charge Refractive Evaluation 013 No Charge Orbscan Advance Directives Directive Yes / No Effective Date File Name No Information Encounters Encounter Description Practice Location Reason(s) For Visit Diagnoses Date Provider Providers Copied on Encounter [facility], [address], [place], [place], [id number], [place] tel:[phone] [facility] No Information 3 Dashawn Shelton. [address] [place] [address], [address], [place], [place], [id number], . tel:[phone] Referring Provider: Alvin Tenorio, [address] [facility], [place], [address]. tel:[phone] [facility], [address] [place], [place] [address] [address], [place], [place], [id number], tel:[phone] [facility] REGULAR ASTIGMATISMPRESB YOPIA 3 Dashawn Shelton. [address] [place] [address], [address], [place], [place], [id number], . tel:[phone] Referring Provider: Alvin Tenorio, [address] [place] [address], [place], [address]. tel:[phone] [facility], [address] [place], [place] [address] [address], [place], [place], [id number], tel:[phone] [facility] No Information 3 Dashawn Shelton. [address] [place] [address], [address], [place], [place], [id number], . tel:[phone] Referring Provider: Alvin Tenorio, [address] [place] [address], [place], [address]. tel:[phone] Family History Family Member Type Diagnosis Age At Onset Mother Problem (finding) Strabismus Payers Payer name Insurance type Covered green party ID Authoriza tion(s) No Information Social History Type Description Quantity Date Captured Comments Sex Male Smoking Status No Information Chief Complaint And Reason For Visit No Information Reason For Referral Reason For Referral No Information History Of Present Illness Encounter Date Complaint History Of Prese nt Illness No Information Functional Status Date Functional Assessmen t No Information Instructions Date Instruction Additional Infor mation - proceed as scheduled Related t o See impression: general plan General plan -Hypero pic Astigmatism -Presbyopia, no chemosis - Discussed dx with pt. Explained LASIK, and explained spec wear after for his near vision discussed diving with pt and mask wear. explained pt will likely need to have his mask remade with his new prescription, discussed CHE with anti coagulants Educational materials provided:about today's exam.ok to proceed as scheduledPt will need to avoid swimming for 3 weeks after surgery Related to See impression: general plan Assessments Type Assessment Date No Information Patient Care Teams Name Effective Dates (start - stop) Status Members No Information
--- OUTSIDE RECORDS SUMMARY | 2025-04-30 07:05 | XMS_ITS | Clinical Summary ---
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
[2025-04-30 07:16] LABS: Hematocrit 42.0 % (37.0-46.0); Hemoglobin 14.0 g/dL (12.4-15.3); Immature Granulocyte Percent A 0.5 % (0.0-0.0); Lymphocytes Absolute Auto 1.47 K/mm3 (1.10-4.50); Mean Corpuscular HGB Conc 33.3 g/dL (32-36); Mean Corpuscular Hemoglobin 29.6 pg (27.0-31.0); Mean Corpuscular Volume 88.8 fL (78.0-102.0); Nucleated Red Blood Cells Absolute Auto 0.00 K/mm3 (0.00-0.00); Nucleated Red Blood Cells Perc 0.0 % (0-0.0); Platelet Count Result 189 K/mm3 (150-420); Red Blood Count 4.73 M/mm3 (4.70-6.10); White Blood Count 7.4 K/mm3 (4.8-10.8)
[2025-04-30 07:33] LABS: INR 3.2; Prothrombin Time 31.2 Seconds (9.50-12.1)
[2025-04-30 08:19] LABS: Alanine Aminotransferase 13 U/L (6-50); Albumin Level 4.3 g/dL (3.5-5.1); Alkaline Phosphatase 50 U/L (38-126); Anion Gap 6 mmol/L (4-12); Aspartate Amino Transferase 26 U/L (17-59); Bilirubin,Total 1.1 mg/dL (0.2-1.3); Blood Urea Nitrogen 21 mg/dL (9-20); Calcium 9.2 mg/dL (8.4-10.2); Carbon Dioxide 29 mmol/L (22-30); Chloride 106 mmol/L (98-107); Cholesterol 147 mg/dL (0-200); Estimated Glomerular Filt Rate 59; Glucose 98 mg/dL (65-110); HDL Direct 39 mg/dL; Osmolality Calculated 295 mOsm/kg (285-295); Potassium 4.7 mmol/L (3.4-5.0); Sodium 141 mmol/L (137-145); Total Protein 7.3 g/dL (6.3-8.2); Triglycerides 86 mg/dL (<150)
[2025-04-30 08:35] LABS: Free T4 Free Thyroxine 1.71 ng/dL (0.78-2.19)
[2025-04-30 08:49] LABS: Thyroid Stimulating Hormone Reflex < 0.015 uIU/mL (0.465-4.68)
== END 2025-04-30 07:01 | disposition home or self-care (01) ==
LOC: CHSLAB 07:03
PROVIDERS: PCP Internal Medicine
DX: Z79.01 Long term (current) use of anticoagulants (principal); I10 Essential (primary) hypertension; I44.2 Atrioventricular block, complete; Z95.0 Presence of cardiac pacemaker; Z95.2 Presence of prosthetic heart valve; Z95.828 Presence of other vascular implants and grafts
CPT/HCPCS: 36415; 80053; 80061; 84439; 84443; 85025; 85610

== ENCOUNTER 2025-06-04 13:32 | Outpatient (RCR) | payer MEDICARE, SELFPAY ==
[2025-03-24 08:30] LABS: INR 2.8; Prothrombin Time 28.2 Seconds (9.50-12.1)
[2025-06-04 14:17] LABS: INR 2.2; Prothrombin Time 23.0 Seconds (9.50-12.1)
== END 2025-06-22 23:59 | disposition home or self-care (01) ==
LOC: CHSLAB 13:32
PROVIDERS: PCP Internal Medicine; Visit Provider Internal Medicine
DX: Z79.01 Long term (current) use of anticoagulants (principal)
CPT/HCPCS: 36415; 85610